=== PATIENT | female | born 1980 | race Caucasian/White ===

== ENCOUNTER 2016-12-28 16:29 | Emergency (ER) | payer OTHER ==
[~2016-12-28] VITALS: Ht 165.1 cm; Wt 102.3 kg
[~2016-12-28 16:29] MED LIST: ATV/1 PO; LEVO175T PO
[2016-12-28 16:35] VITALS: Ht 165.1 cm; Wt 102.3 kg
[2016-12-28] MEDS ORDERED: SODIUM CHLORIDE 0.9% 1000ML 1,000 ML IV STA (17:33)
[2016-12-28] MEDS ORDERED: KETOROLAC TROMETHAMINE 30 MG/ML VIAL IV STA (17:33)
[2016-12-28] MEDS ORDERED: ONDANSETRON INJ 2 MG/ML 2 ML VIAL IV STA (17:33)
--- NOTE | 2016-12-28 17:57 | EMERGENCY ROOM VISIT NOTE ---
History Report prepared by Abrahamibcameron: Kallie Eubanks Under the Supervision of: Olga BatistaO. First contact with patient: 17:23 Chief Complaint: FLANK PAIN Stated Complaint: LOWER BACK/KIDNEY PAIN History of Present Illness The patient is a 36 year old female who presents to the Emergency Room with complaints of constant lower back pain that started two days ago. She notes that the pain worsens when she is laying on her back. She denies numbness in her legs. The patient notes she is prone kidney infections. The patient denies blood in urine. She also states she had her gallbladder removed. The patient works at [employer]. She denies any urinary symptoms and notes that she normally does not get any urinary symptoms. No fevers. No chest pain shortness of breath or vomiting. No history kidney stones. Source of History: patient Onset: two days ago Position: back (lower) Timing: constant Modifying Factors (Worsening): other (laying) Associated Symptoms: No numbness Note: Pt denies headache, change in vision, fevers, chest pain, shortness of breath, nausea, vomiting, diarrhea, pain with urination, and melena. The patient denies blood in urine. Review of Systems See HPI for pertinent positives & negatives. A total of 10 systems reviewed and were otherwise negative. Past Medical & Surgical Medical Problems: (1) Abdominal pain (2) Abdominal pain (3) Abdominal pain (4) Abdominal pain (5) Acute pyelonephritis (6) Back pain (7) C. difficile colitis (8) C. difficile colitis (9) C. difficile colitis (10) C. difficile colitis (11) Constipation (12) Dental caries (13) Diarrhea (14) Dysplasia of cervix (15) Gastritis (16) Gastritis (17) Hypokalemia (18) Hypothyroidism (19) Lower abdominal pain (20) Migraine (21) Nausea, vomiting, and diarrhea (22) Ovarian cyst, right (23) Ovarian cyst, right (24) Pain in pelvis (25) Pain, dental (26) Pyelonephritis (27) Rib pain on right side (28) Toe fracture, left (29) Urinary tract infection (30) Vomiting Surgical Problems: (1) Cholecystectomy (2) Excision of skin tag (3) Laparoscopy (4) Vaginal hysterectomy Family History Hypertension Irritable bowel syndrome Social History Smoking Status: Current Every Day Smoker Alcohol Use: occasionally Drug Use: none Marital Status: single Housing Status: unknown Occupation Status: employed Current/Historical Medications Scheduled Sulfa/Trimethoprim (Bactrim Ds 800MG/160MG), 1 TAB PO BID Allergies Coded Allergies: Morphine (Verified Allergy, Severe, "CHEST GETS TIGHT AND CAN'T BREATH", ) Physical Exam Vital Signs Date Time Temp Pulse Resp B/P (MAP) Pulse Ox O2 Delivery O2 Flow Rate FiO2 12/28/16 20:11 37.0 81 17 142/99 97 12/28/16 19:47 81 17 142/99 97 Room Air 12/28/16 16:35 37.0 87 17 157/103 97 Room Air Physical Exam GENERAL: alert, well appearing, well nourished, no distress, non-toxic, sitting up in bed. EYE EXAM: normal conjunctiva OROPHARYNX: no exudate, no erythema, lips, buccal mucosa, and tongue normal and mucous membranes are moist NECK: supple, no nuchal rigidity, no adenopathy, non-tender LUNGS: Clear to auscultation. Normal chest wall mechanics HEART: no murmurs, S1 normal and S2 normal ABDOMEN: abdomen soft, non-tender, normo-active bowel sounds, no masses, no rebound or guarding. BACK: Back is symmetrical on inspection and there is no deformity, no midline tenderness, no CVA tenderness. Acute reproducible tenderness in right lower lumbar para spinal region tracking into gluteus. SKIN: no rashes and no bruising UPPER EXTREMITIES: upper extremities are grossly normal. LOWER EXTREMITIES: No pitting edema.Flexion and extension in hip, knee, ankle, and EHL, 5/5 bilaterally NEURO EXAM: Normal sensorium. Medical Decision & Procedures ER Provider Diagnostic Interpretation: Radiology results as stated below per my review and the radiologist's interpretation: CT SCAN OF THE ABDOMEN AND PELVIS WITHOUT IV CONTRAST FINDINGS: Lung bases: The heart is normal in size and without pericardial effusion. The lungs and pleural spaces are clear noting minimal dependent atelectasis. A tiny hiatal hernia is identified. Liver: The unenhanced liver is enlarged, measuring 21.3 cm in length. The liver is otherwise normal in contour and attenuation. There is minimal central intrahepatic biliary ductal dilatation as well as pneumobilia. Gallbladder: Surgically absent noting clips in the gallbladder fossa. Spleen: Normal in size and attenuation. Pancreas: Unremarkable. Adrenal glands: Unremarkable. Kidneys: The unenhanced kidneys are normal in size and without hydronephrosis. No renal calculi are identified. There is no evidence of contour deforming mass lesion. Abdominal vasculature: The abdominal aorta is normal in course and caliber. Bowel: The small bowel and colon are normal in course and caliber. The appendix is well-visualized and normal. Peritoneum: No intraperitoneal free air or abdominal ascites is seen. There is a fat-containing umbilical hernia. Lymphadenopathy: None. Pelvic viscera: The bladder is normal as visualized. The uterus is surgically absent. There are bilateral ovarian follicles. Skeletal structures: No destructive bony lesions are seen. IMPRESSION: 1. There are no acute infectious or inflammatory findings in the abdomen or pelvis. 2. Hepatomegaly. Electronically signed by: Son Sharma M.D. Laboratory Results 12/28/16 17:50 Red Blood Count 4.19, Mean Corpuscular Volume 100.0, Mean Corpuscular Hemoglobin 34.4, Mean Corpuscular Hemoglobin Concent 34.4, Mean Platelet Volume 10.3, Neutrophils (%) (Auto) 63.7, Lymphocytes (%) (Auto) 26.8, Monocytes (%) ( Auto) 6.3, Eosinophils (%) (Auto) 2.5, Basophils (%) (Auto) 0.4, Neutrophils # ( Auto) 4.66, Lymphocytes # (Auto) 1.96, Monocytes # (Auto) 0.46, Eosinophils # ( Auto) 0.18, Basophils # (Auto) 0.03 12/28/16 17:50 Test 12/28/16 17:50 12/28/16 18:20 White Blood Count 7.31 K/uL (4.8-10.8) Red Blood Count 4.19 M/uL (4.2-5.4) Hemoglobin 14.4 g/dL (12.0-16.0) Hematocrit 41.9 % (37-47) Mean Corpuscular Volume 100.0 fL (80-100) Mean Corpuscular Hemoglobin 34.4 pg (25-34) Mean Corpuscular Hemoglobin Concent 34.4 g/dl (32-36) Platelet Count 338 K/uL (130-400) Mean Platelet Volume 10.3 fL (7.4-10.4) Neutrophils (%) (Auto) 63.7 % Lymphocytes (%) (Auto) 26.8 % Monocytes (%) (Auto) 6.3 % Eosinophils (%) (Auto) 2.5 % Basophils (%) (Auto) 0.4 % Neutrophils # (Auto) 4.66 K/uL (1.4-6.5) Lymphocytes # (Auto) 1.96 K/uL (1.2-3.4) Monocytes # (Auto) 0.46 K/uL (0.11-0.59) Eosinophils # (Auto) 0.18 K/uL (0-0.5) Basophils # (Auto) 0.03 K/uL (0-0.2) RDW Standard Deviation 47.9 fL (36.4-46.3) RDW Coefficient of Variation 13.2 % (11.5-14.5) Immature Granulocyte % (Auto) 0.3 % Immature Granulocyte # (Auto) 0.02 K/uL (0.00-0.02) Anion Gap 8.0 mmol/L (3-11) Est Creatinine Clear Calc Drug Dose 103.5 ml/min Estimated GFR () 96.0 Estimated GFR (Non- 82.8 BUN/Creatinine Ratio 10.9 (10-20) Calcium Level 8.8 mg/dl (8.5-10.1) Total Bilirubin 0.1 mg/dl (0.2-1) Direct Bilirubin < 0.1 mg/dl (0-0.2) Aspartate Amino Transf (AST/SGOT) 18 U/L (15-37) Alanine Aminotransferase (ALT/SGPT) 26 U/L (12-78) Alkaline Phosphatase 81 U/L (45-117) Total Protein 7.9 gm/dl (6.4-8.2) Albumin 4.0 gm/dl (3.4-5.0) Lipase 144 U/L (73-393) Urine Color YELLOW Urine Appearance CLEAR (CLEAR) Urine pH 6.5 (4.5-7.5) Urine Specific Hamel 1.014 (1.000-1.030) Urine Protein NEG (NEG) Urine Glucose (UA) NEG (NEG) Urine Ketones NEG (NEG) Urine Occult Blood NEG (NEG) Urine Nitrite NEG (NEG) Urine Bilirubin NEG (NEG) Urine Urobilinogen NEG (NEG) Urine Leukocyte Esterase MODERATE (NEG) Urine WBC (Auto) >30 /hpf (0-5) Urine RBC (Auto) 0-4 /hpf (0-4) Urine Hyaline Casts (Auto) 1-5 /lpf (0-5) Urine Epithelial Cells (Auto) 5-10 /lpf (0-5) Urine Bacteria (Auto) 3+ (NEG) Urine Test NEG (NEG) Laboratory results per my review. Medications Administered Medications (Trade) Dose Ordered Sig/Elvis Route Start Time Stop Time Status Last Admin Dose Admin Sodium Chloride 1,000 ml @ 999 mls/hr Q1H1M STAT IV 12/28/16 17:33 12/28/16 18:33 DC 12/28/16 18:27 999 MLS/HR Ketorolac Tromethamine (Toradol Inj) 30 mg NOW STAT IV 12/28/16 17:33 12/28/16 17:35 DC 12/28/16 18:28 30 MG Ondansetron HCl (Zofran Inj) 4 mg NOW STAT IV 12/28/16 17:33 12/28/16 17:35 DC 12/28/16 18:27 4 MG Ceftriaxone Sodium (Rocephin Inj) 1 gm NOW STAT IV 12/28/16 19:22 12/28/16 19:23 DC 12/28/16 19:39 1 GM ED Course ED COURSE: Vital signs were reviewed and showed hypertensive The patients medical record was reviewed The above diagnostic studies were performed and reviewed. ED treatments and interventions as stated above. 1727: The patient was evaluated in room A11B. A complete history and physical examination was performed. 1733: Zofran Inj 4 mg IV, Toradol Inj 30 mg IV, Sodium Chloride 1000 ml @ 999 mls/hr IV. 1806: I updated the patient. She is feeling better. 1921: Rocephin Inj 1 gm IV 8: Upon reevaluation, the patient is resting.I discussed my findings with the patient and she understands and agrees with the treatment plan. Based on the patients age, coexisting illnesses, exam and lab findings the decision to treat as an outpatient was made. The patient remained stable while under my care. The patient appeared well at the time of discharge. Medical Decision Differential diagnoses includes but is not limited to lumbar radiculopathy, muscle strain, facture, cauda equina, mass, and disc herniation. Patient is a 36-year-old female who presents the ER for right lower back pain radiating into her gluteus on palpation. Pain is worsened with laying on. Has been present for the past 2 days. No urinary symptoms. Vitals were unremarkable. CBC along with BMP, LFTs, bilirubin and lipase are normal. UA suggest a UTI. was negative. Patient was given IV Rocephin. Her back pain does appear to be clearly musculoskeletal. I did CT her and there is no evidence of renal stone. Based on the findings she was discharged with a UTI and lower back pain secondary to muscle skeletal pain. Discussed with Pt concerning signs and symptoms to watch out for. Pt was instructed to follow up with their PCP and discussed with the patient their option to return to the ED at anytime for persistent or worsening symptoms. The appropriate anticipatory guidance and out-patient management, including indications for return to the emergency department, were explained at length to the patient and understood. Medication Reconcilliation Current Medication List: was personally reviewed by me Blood Pressure Screening Patient's blood pressure: Elevated blood pressure Blood pressure disposition: Elevated BP felt to be situational Impression Primary Impression: UTI (urinary tract infection) Additional Impression: Musculoskeletal pain Scribe Attestation The scribe's documentation has been prepared under my direction and personally reviewed by me in its entirety. I confirm that the note above accurately reflects all work, treatment, procedures, and medical decision making performed by me. Departure Information Dispostion Home / Self-Care Prescriptions Sulfa/Trimethoprim (Bactrim Ds 800MG/160MG) Tab 1 TAB PO BID, #20 TAB Prov: Ben Arce DO 12/28/16 Referrals Nereida Sanchez DO (PCP) Forms HOME CARE DOCUMENTATION FORM, IMPORTANT VISIT INFORMATION Patient Instructions Back Pain - [facility], ED UTI Cystitis Female, My [facility] Additional Instructions Please follow up with your primary care doctor or if you are a student, [facility] with in the next 24 hours. Any worsening of your symptoms, please return to the ED immediately. This includes any fevers greater than 100.4, worsening pain, chest pain, shortness breath, persistent nausea, vomiting, unable to eat or drink, or any other concerning signs or symptoms from your standpoint. Please take antibiotic as prescribed. These take Motrin or Tylenol as needed for your back pain. Problem Qualifiers Primary Impression: UTI (urinary tract infection) Urinary tract infection type: acute cystitis Hematuria presence: with hematuria Qualified Codes: N30.01 - Acute cystitis with hematuria
[2016-12-28 17:58] LABS: BASO % 0.4 %; BASO ABS # 0.03 K/uL (0-0.2); COMPLETE YES; EOS % 2.5 %; HEMATOCRIT 41.9 % (37-47); IG% 0.3 %; LYMPH % 26.8 %; LYMPH ABS # 1.96 K/uL (1.2-3.4); MEAN CORPUSCULAR HEMOGLOBIN 34.4 pg (25-34); MEAN CORPUSCULAR HGB CONC 34.4 g/dl (32-36); MEAN PLATELET VOLUME 10.3 fL (7.4-10.4); MONO % 6.3 %; NEUT % 63.7 %; PLATELET COUNT 338 K/uL (130-400); RED BLOOD COUNT 4.19 M/uL (4.2-5.4); WHITE BLOOD COUNT 7.31 K/uL (4.8-10.8)
[2016-12-28 18:15] LABS: ALT/SGPT 26 U/L (12-78); BLOOD UREA NITROGEN 10 mg/dl (7-18); BUN/CREATININE RATIO 10.9 (10-20); CALCIUM 8.8 mg/dl (8.5-10.1); CARBON DIOXIDE 28 mmol/L (21-32); CHLORIDE 106 mmol/L (98-107); GLUCOSE 95 mg/dl (70-99); POTASSIUM 3.6 mmol/L (3.5-5.1); SODIUM 142 mmol/L (136-145)
[2016-12-28 18:18] LABS: ALKALINE PHOSPHATASE 81 U/L (45-117); AST/SGOT 18 U/L (15-37)
[2016-12-28 18:48] LABS: URINE APPEARANCE CLEAR (CLEAR); URINE BILIRUBIN NEG (NEG); URINE COLOR YELLOW; URINE NITRITE NEG (NEG); URINE PH 6.5 (4.5-7.5); URINE SPECIFIC GRAVITY 1.014 (1.000-1.030); UROBILINOGEN NEG (NEG); ZZUR CULT IF INDIC CLEAN CATCH YES
[2016-12-28 18:50] LABS: MANUAL MICROSCOPIC REQUIRED? NO; REVIEW REQ? NO
--- NOTE | 2016-12-28 19:07 | DIAGNOSTIC IMAGING REPORT ---
CT SCAN OF THE ABDOMEN AND PELVIS WITHOUT IV CONTRAST CLINICAL HISTORY: Right flank pain. COMPARISON STUDY: Multiple prior abdominal CT scans, most recently dated 08/01/2015. TECHNIQUE: CT scan of the abdomen and pelvis is performed from the lung bases to the proximal femora. Images reviewed in the axial, sagittal, and coronal planes. IV contrast was not administered for this examination as per the referring clinician. Note that the examination was performed in suboptimal fashion without oral and IV contrast. A dose lowering technique was utilized adhering to the principles of ALARA. IMPRESSION: CT DOSE: 1020.14 mGy.cm FINDINGS: Lung bases: The heart is normal in size and without pericardial effusion. The lungs and pleural spaces are clear noting minimal dependent atelectasis. A tiny hiatal hernia is identified. Liver: The unenhanced liver is enlarged, measuring 21.3 cm in length. The liver is otherwise normal in contour and attenuation. There is minimal central intrahepatic biliary ductal dilatation as well as pneumobilia. Gallbladder: Surgically absent noting clips in the gallbladder fossa. Spleen: Normal in size and attenuation. Pancreas: Unremarkable. Adrenal glands: Unremarkable. Kidneys: The unenhanced kidneys are normal in size and without hydronephrosis. No renal calculi are identified. There is no evidence of contour deforming mass lesion. Abdominal vasculature: The abdominal aorta is normal in course and caliber. Bowel: The small bowel and colon are normal in course and caliber. The appendix is well-visualized and normal. Peritoneum: No intraperitoneal free air or abdominal ascites is seen. There is a fat-containing umbilical hernia. Lymphadenopathy: None. Pelvic viscera: The bladder is normal as visualized. The uterus is surgically absent. There are bilateral ovarian follicles. Skeletal structures: No destructive bony lesions are seen. IMPRESSION: 1. There are no acute infectious or inflammatory findings in the abdomen or pelvis. 2. Hepatomegaly. Electronically signed by: Son Sharma M.D. 12/28/2016 7:06 PM Dictated Date/Time: 12/28/2016 6:59 PM
[2016-12-28] MEDS ORDERED: CEFTRIAXONE SOD INJ 1 GM ADDVIAL IV STA (19:22)
[2016-12-28 20:11] VITALS: BP 142/99; PULSE 81; TEMP 37; O2SAT 97
[2016-12-28] MEDS ORDERED: SULF800T23 PO (20:11)
--- NOTE | 2016-12-30 12:50 | Pharmacy Progress Note ---
ED Pharmacist Culture FollowUp Date of Service: Dec 30, 2016. Patient was sent home with a prescription for Bactrim, which should cover the E. coli growing from the patient's urine culture.
== END 2016-12-28 20:15 | disposition home or self-care (01) ==
LOC: C.EDB 16:30 → C.EDA 20:15
DX: N30.01 Acute cystitis with hematuria (principal); M79.1 Myalgia; A04.7 Enterocolitis due to Clostridium difficile; E87.6 Hypokalemia; E03.9 Hypothyroidism, unspecified; Z82.49 Family history of ischemic heart disease and other diseases of the circulatory system; F17.200 Nicotine dependence, unspecified, uncomplicated

== ENCOUNTER 2017-01-16 15:11 | Emergency (ER) | payer OTHER ==
[~2017-01-16] VITALS: Ht 165.1 cm; Wt 106.8 kg
[~2017-01-16 15:11] MED LIST changes: -ATV/1 PO; -LEVO175T PO; +SULF800T23 PO
[2017-01-16 15:14] VITALS: TEMP 36.7; Ht 165.1 cm; Wt 106.8 kg
[2017-01-16] MEDS ORDERED: SODIUM CHLORIDE 0.9% 1000ML 1,000 ML IV STA (15:40)
[2017-01-16] MEDS ORDERED: KETOROLAC TROMETHAMINE 30 MG/ML VIAL IV STA (15:40)
[2017-01-16] MEDS ORDERED: PROCHLORPERAZINE INJ 10 MG in SYRINGE 8 ML IV STA (15:40)
[2017-01-16] MEDS ORDERED: DiphenhydrAMINE HCL 50 MG/ML VIAL IV STA (15:40)
[2017-01-16] MEDS ORDERED: DEXAMETHASONE SOD INJ 10 MG/ML VIAL IV ONE (15:45)
--- NOTE | 2017-01-16 15:54 | EMERGENCY ROOM VISIT NOTE ---
History Report prepared by Nidia: Hal Roberts Under the Supervision of: Dr. Son Monzon M.D. First contact with patient: 15:34 Chief Complaint: HEADACHE Stated Complaint: FLOATERS IN EYE, HEADACHE History of Present Illness The patient is a 36 year old female who presents to the Emergency Room with complaints of an intermittent headache beginning three days ago. She currently rates her discomfort a 7/10 in severity. The patient states that three days ago she was driving home from work and saw things in her left eye. She reports that she thought it was dirt form her windshield, so she looked around, but it stayed with her. The patient notes that when she arrived home, she experienced a severe headache. She states that she was severely nauseous, and her discomfort was an 8/10 in severity. The patient reports that she has a history of migraines and has been on medication before. She notes that this morning, she went in to work to help out. The patient states that she was bending and had to drive to work. She reports that after she returned home, she developed another headache. The patient notes that she called her eye doctor and her PCP. She states that she was told to come to the ED. The patient reports that her migraines typically are centered around her eyes, and it hurts to move them. She notes that the sunlight bothers her eyes, but inside lighting does not. The patient states that she has 20/20 vision, and it seems like her eyes are taking longer to adjust than normal. She reports that she tried taking Tylenol. The patient notes it did not help her, but that is typical for her migraines. She denies hitting her head, fevers, urinary symptoms, vomiting, and a history of diabetes mellitus. Source of History: patient Onset: 3 days ago Position: head Symptom Intensity: 7/10 Quality: ache Timing: intermittent Modifying Factors (Worsening): other (sunlight) Associated Symptoms: + nausea, No fevers, No vomiting, No urinary symptoms Note: Denies: hitting her head Review of Systems See HPI for pertinent positives & negatives. A total of 10 systems reviewed and were otherwise negative. Past Medical & Surgical Medical Problems: (1) Abdominal pain (2) Abdominal pain (3) Abdominal pain (4) Abdominal pain (5) Acute pyelonephritis (6) Back pain (7) C. difficile colitis (8) C. difficile colitis (9) C. difficile colitis (10) C. difficile colitis (11) Constipation (12) Dental caries (13) Diarrhea (14) Dysplasia of cervix (15) Gastritis (16) Gastritis (17) Hypokalemia (18) Hypothyroidism (19) Lower abdominal pain (20) Migraine (21) Nausea, vomiting, and diarrhea (22) Ovarian cyst, right (23) Ovarian cyst, right (24) Pain in pelvis (25) Pain, dental (26) Pyelonephritis (27) Rib pain on right side (28) Toe fracture, left (29) Urinary tract infection (30) Vomiting Surgical Problems: (1) Cholecystectomy (2) Excision of skin tag (3) Laparoscopy (4) Vaginal hysterectomy Family History Hypertension Irritable bowel syndrome Social History Smoking Status: Never Smoker Alcohol Use: occasionally Drug Use: none Marital Status: single Housing Status: unknown Occupation Status: employed Current/Historical Medications No Active Prescriptions or Reported Meds Allergies Coded Allergies: Morphine (Verified Allergy, Severe, "CHEST GETS TIGHT AND CAN'T BREATH", ) Physical Exam Vital Signs Date Time Temp Pulse Resp B/P (MAP) Pulse Ox O2 Delivery O2 Flow Rate FiO2 01/16/17 17:52 74 18 115/74 96 01/16/17 16:43 79 18 124/77 97 Room Air 01/16/17 15:14 36.7 96 20 140/90 97 Room Air Physical Exam GENERAL: Patient is in no acute distress. HEENT: No acute trauma, normocephalic atraumatic, mucous membranes moist, no nasal congestion, no scleral icterus. Pupils equal and reactive to light. NECK: No stridor, no adenopathy, no meningismus, trachea is midline. LUNGS: Clear to auscultation bilaterally, no wheeze, no rhonchi, breath sounds equal. HEART: Without murmurs gallops or rubs, regular rate and rhythm. ABDOMEN: Soft, nontender, bowel sounds positive, no hernias, no peritonitis. EXTREMITIES: No cyanosis or edema, full range of motion of all the joints without pain or difficulty, no signs for acute trauma. NEUROLOGIC: Oriented x 3, no acute motor or sensory deficits, no focal weakness. No cerebellar deficits. SKIN: No rash, no jaundice, no diaphoresis Medical Decision & Procedures Medications Administered Medications (Trade) Dose Ordered Sig/Elvis Route Start Time Stop Time Status Last Admin Dose Admin Sodium Chloride 1,000 ml @ 999 mls/hr Q1H1M STAT IV 01/16/17 15:40 01/16/17 16:40 DC 01/16/17 16:41 999 MLS/HR Diphenhydramine HCl (Benadryl Inj) 50 mg NOW STAT IV 01/16/17 15:40 01/16/17 15:44 DC 01/16/17 16:41 50 MG Ketorolac Tromethamine (Toradol Inj) 30 mg NOW STAT IV 01/16/17 15:40 01/16/17 15:44 DC 01/16/17 16:41 30 MG Prochlorperazine Edisylate 10 mg/ Syringe 10 ml @ 5 mls/min NOW STAT IV 01/16/17 15:40 01/16/17 15:44 DC 01/16/17 17:30 5 MLS/MIN Dexamethasone Sodium Phosphate (Decadron Inj) 10 mg NOW ONCE IV 01/16/17 15:45 01/16/17 15:46 DC 01/16/17 16:41 10 MG ED Course 1536: The patient was evaluated in room B07. A complete history and physical exam was performed. 1540: Ordered Prochlorperazine Edisylate 10 mg/Syringe 10 ml @ 5 mls/min IV, Toradol Inj 30mg IV, Benadryl Inj 50mg IV, Sodium Chloride 1000 ml @ 999 mls/hr IV 1545: Ordered Decadron Inj 10mg IV 1738: Reevaluated the patient. The patient states her headache is gone. Her visual acuity was 20/30 in both the right and left eye. The patient's eye pressure was 12.8 in the left and 11 in the right. Discussed results and discharge instructions: she verbalized understanding and agreement. The patient is ready for discharge. Medical Decision The patient is a 36 year old female who presents to the ED with complaints of a headache. Differential diagnoses considered include migraine headache, tension headache, intracranial bleeding, meningitis, head injury. The patient presents with complaints which sounded very migrainous. She has a history of similar headaches. On exam, her visual acuity was 20/30 in both eyes. Pressure testing of the eyes was normal. She had a nonfocal neurologic evaluation. She had no focal neurologic deficits. There was no meningismus, she was not febrile. The patient received IV Compazine, IV Toradol, IV Benadryl and IV Decadron. She was given IV saline. She feels improved. She is being discharged to follow with her doctor and possibly her eye doctor. Her headache does sound migrainous. Impression Primary Impression: Headache Scribe Attestation The scribe's documentation has been prepared under my direction and personally reviewed by me in its entirety. I confirm that the note above accurately reflects all work, treatment, procedures, and medical decision making performed by me. Departure Information Dispostion Home / Self-Care Prescriptions No Active Prescriptions or Reported Meds Referrals No Doctor, Assigned (PCP) Forms HOME CARE DOCUMENTATION FORM, IMPORTANT VISIT INFORMATION Patient Instructions My [facility] [address] Additional Instructions fluids rest return if worsening or have fever or vomiting eye testing was ok today see eye doctor in follow up
[2017-01-16 17:52] VITALS: BP 115/74; PULSE 74; O2SAT 96
== END 2017-01-16 17:53 | disposition home or self-care (01) ==
LOC: C.EDB 15:13
DX: R51 Headache (principal); E03.9 Hypothyroidism, unspecified; E87.6 Hypokalemia; Z82.49 Family history of ischemic heart disease and other diseases of the circulatory system

== ENCOUNTER 2017-01-20 16:58 | Emergency (ER) | payer OTHER ==
[~2017-01-20] VITALS: Ht 165.1 cm; Wt 107.4 kg
[2017-01-20 17:04] VITALS: TEMP 37.2; Ht 165.1 cm; Wt 107.4 kg
[2017-01-20] MEDS ORDERED: SODIUM CHLORIDE 0.9% 1000ML 1,000 ML IV ONE ×2 (17:45)
[2017-01-20] MEDS ORDERED: MoRPHine SULFATE 4 MG/ML 1 ML CARP\\VIAL IV STA (17:45)
--- NOTE | 2017-01-20 17:52 | EMERGENCY ROOM VISIT NOTE ---
History First contact with patient: 17:23 Chief Complaint: DIARRHEA Stated Complaint: DIARRHEA,FEVER Nursing Triage Summary: diarrhea since thursday. hx of c diff History of Present Illness The patient is a 36 year old female who presents to the Emergency Room with complaints of diarrhea for the last 4 days. She has had approximately 10-12 bowel movements per day for the last 4 days. She denies any dark stools or blood in her stool. She has been also running a fever. She says her temperature typically runs low at the 97F range. Today she took it before she left the house. It was 99.4F. She denies any vomiting. She does complain of abdominal pain which is constant in the upper region of her abdomen. The patient reports a history of having C. difficile 3 times in the past. Her last diagnosis was 8 months ago. She completed a course of antibiotics at that time. Of note, the patient was seen in the emergency department approximately 1 month ago. She was treated for UTI with Bactrim. Review of Systems 10 system review performed and negative unless noted in HPI or below Past Medical/Surgical History Medical Problems: (1) Abdominal pain (2) Abdominal pain (3) Abdominal pain (4) Abdominal pain (5) Acute pyelonephritis (6) Back pain (7) C. difficile colitis (8) C. difficile colitis (9) C. difficile colitis (10) C. difficile colitis (11) Constipation (12) Dental caries (13) Diarrhea (14) Dysplasia of cervix (15) Gastritis (16) Gastritis (17) Hypokalemia (18) Hypothyroidism (19) Lower abdominal pain (20) Migraine (21) Nausea, vomiting, and diarrhea (22) Ovarian cyst, right (23) Ovarian cyst, right (24) Pain in pelvis (25) Pain, dental (26) Pyelonephritis (27) Rib pain on right side (28) Toe fracture, left (29) Urinary tract infection (30) Vomiting Surgical Problems: (1) Cholecystectomy (2) Excision of skin tag (3) Laparoscopy (4) Vaginal hysterectomy Family History Hypertension Irritable bowel syndrome Social History Smoking Status: Current Every Day Smoker Alcohol Use: none Current/Historical Medications No Active Prescriptions or Reported Meds Physical Exam Vital Signs Date Time Temp Pulse Resp B/P (MAP) Pulse Ox O2 Delivery O2 Flow Rate FiO2 01/20/17 20:54 80 13 142/93 95 Room Air 01/20/17 18:55 71 15 153/95 98 Room Air 01/20/17 17:34 80 01/20/17 17:04 37.2 76 18 157/100 96 Room Air Physical Exam VITALS: Vitals are noted on the nurse's note and reviewed by myself. Vital signs stable. GENERAL: 36-year-old female, in no acute distress, nondiaphoretic, well- developed well-nourished. SKIN: The skin was without rashes, erythema, edema, or bruising. HEAD: Normocephalic atraumatic. MOUTH: Mucous membranes slightly dry NECK: Supple without nuchal rigidity. No JVD. HEART: Regular rate and rhythm without murmurs gallops or rubs. LUNGS: Clear to auscultation bilaterally without wheezes, rales or rhonchi. No accessory muscle use. ABDOMEN: Positive bowel sounds x 4.Soft, mild tenderness to palpation in the epigastric region, without organomegaly. No guarding or rebound tenderness. MUSCULOSKELETAL: No muscle atrophy, erythema, or edema noted. Strength 5/5 throughout. NEURO: Patient was alert and oriented to person place and time. Normal sensation to touch. No focal neurological deficits. Medical Decision & Procedures ER Provider Diagnostic Interpretation: PA CHEST RADIOGRAPH AND UPRIGHT AND SUPINE AP RADIOGRAPHS OF THE ABDOMEN CLINICAL HISTORY: Epigastric abdominal pain. COMPARISON STUDY: Chest radiograph and abdominal series December 19, [address] of the abdomen and pelvis December 28, 2016. FINDINGS: Lung volumes are at the lower limits of normal. No pneumothorax or pleural effusion is present. Pulmonary vascularity is normal. Cardiomediastinal silhouette is normal. The appearance of the chest is unchanged. There is no free air. Cholecystectomy clips are noted. Bowel gas pattern is normal. IMPRESSION: 1. No free air or evidence of bowel obstruction. 2. No acute cardiopulmonary findings. Electronically signed by: Reyes Tejeda M.D. 01/20/2017 6:55 PM Dictated Date/Time: 01/20/2017 6:53 PM Laboratory Results 01/20/17 17:30 Red Blood Count 3.99, Mean Corpuscular Volume 100.0, Mean Corpuscular Hemoglobin 34.1, Mean Corpuscular Hemoglobin Concent 34.1, Mean Platelet Volume 11.0, Neutrophils (%) (Auto) 60.9, Lymphocytes (%) (Auto) 31.2, Monocytes (%) ( Auto) 5.4, Eosinophils (%) (Auto) 2.0, Basophils (%) (Auto) 0.3, Neutrophils # ( Auto) 5.72, Lymphocytes # (Auto) 2.94, Monocytes # (Auto) 0.51, Eosinophils # ( Auto) 0.19, Basophils # (Auto) 0.03 01/20/17 17:30 Test 01/20/17 17:30 White Blood Count 9.41 K/uL (4.8-10.8) Red Blood Count 3.99 M/uL (4.2-5.4) Hemoglobin 13.6 g/dL (12.0-16.0) Hematocrit 39.9 % (37-47) Mean Corpuscular Volume 100.0 fL (80-100) Mean Corpuscular Hemoglobin 34.1 pg (25-34) Mean Corpuscular Hemoglobin Concent 34.1 g/dl (32-36) Platelet Count 370 K/uL (130-400) Mean Platelet Volume 11.0 fL (7.4-10.4) Neutrophils (%) (Auto) 60.9 % Lymphocytes (%) (Auto) 31.2 % Monocytes (%) (Auto) 5.4 % Eosinophils (%) (Auto) 2.0 % Basophils (%) (Auto) 0.3 % Neutrophils # (Auto) 5.72 K/uL (1.4-6.5) Lymphocytes # (Auto) 2.94 K/uL (1.2-3.4) Monocytes # (Auto) 0.51 K/uL (0.11-0.59) Eosinophils # (Auto) 0.19 K/uL (0-0.5) Basophils # (Auto) 0.03 K/uL (0-0.2) RDW Standard Deviation 49.9 fL (36.4-46.3) RDW Coefficient of Variation 13.6 % (11.5-14.5) Immature Granulocyte % (Auto) 0.2 % Immature Granulocyte # (Auto) 0.02 K/uL (0.00-0.02) Urine Test NEG (NEG) Anion Gap 7.0 mmol/L (3-11) Est Creatinine Clear Calc Drug Dose 79.7 ml/min Estimated GFR () 67.8 Estimated GFR (Non- 58.5 BUN/Creatinine Ratio 10.0 (10-20) Calcium Level 8.8 mg/dl (8.5-10.1) Magnesium Level 2.0 mg/dl (1.8-2.4) Total Bilirubin 0.2 mg/dl (0.2-1) Aspartate Amino Transf (AST/SGOT) 38 U/L (15-37) Alanine Aminotransferase (ALT/SGPT) 55 U/L (12-78) Alkaline Phosphatase 76 U/L (45-117) Total Protein 7.4 gm/dl (6.4-8.2) Albumin 3.7 gm/dl (3.4-5.0) Globulin 3.7 gm/dl (2.5-4.0) Albumin/Globulin Ratio 1.0 (0.9-2) Lipase 157 U/L (73-393) Medications Administered Medications (Trade) Dose Ordered Sig/Elvis Route Start Time Stop Time Status Last Admin Dose Admin Sodium Chloride 1,000 ml @ 999 mls/hr Q1H1M ONCE IV 01/20/17 17:45 01/20/17 18:45 DC 01/20/17 18:25 999 MLS/HR Sodium Chloride 1,000 ml @ 999 mls/hr Q1H1M ONCE IV 01/20/17 17:45 01/20/17 18:45 DC 01/20/17 17:45 999 MLS/HR Hydromorphone HCl (Dilaudid Inj) 1 mg ONE ONCE IV 01/20/17 18:30 01/20/17 18:31 DC 01/20/17 18:54 1 MG Potassium Chloride (Klor-Con M10) 40 meq NOW STAT PO 01/20/17 19:44 01/20/17 19:45 DC 01/20/17 20:05 40 MEQ Hydromorphone HCl (Dilaudid Inj) 1 mg ONE ONCE IM 01/20/17 20:15 01/20/17 20:16 DC 01/20/17 20:15 1 MG Dicyclomine HCl (Dicyclomine HCl 10MG Home Pack) 1 ea UD ONCE PO 01/20/17 21:00 01/20/17 21:01 DC 01/20/17 21:00 1 EA ED Course Patient was seen and examined Vital signs including blood pressure were reviewed medications list was verified with patient Labs were obtained, and a saline lock was established Imaging was performed and reviewed The patient was given Dilaudid 1 mg IV for pain. She was also hydrated with 2 L of normal saline Upon reevaluation, the patient was still complaining of pain. She was given 1 additional dose of Dilaudid 1 mg IV. We discussed the results of her workup. Unfortunately, the patient was not able to provide a stool sample. The patient was given a home pack of Bentyl I reviewed discharge instructions the patient. They voiced understanding and had no further questions. Medical Decision Differential diagnosis: Recurrent C. difficile colitis, bowel obstruction, pancreatitis, appendicitis, This patient is a 36-year-old female that presents to the emergency department with complaints of abdominal pain and diffuse diarrhea for the last several days. She also has had a fever. She has a history of C. difficile. Upon exam , the patient was mildly tender without any signs of peritonitis. Her imaging was negative for perforation. Normal gas pattern was noted. The patient was not able to have a bowel movement here. She is afebrile with no leukocytosis. Her C. difficile and stool cultures were ordered. The patient was provided with sample cups, and instructed to bring a stool sample to the hospital as soon as possible for testing. No antibiotics were started. She was comfortable with this plan, and discharged in good condition. This chart was completed in part utilizing Siemens Speech Voice Recognition software. Attempts were made to minimize the grammatical errors, random word insertions, pronoun errors and incomplete sentences. Any formal questions or concerns about the content, text or information contained within the body of this dictation should be directly addressed to the provider for clarification. Medication Reconcilliation Current Medication List: was personally reviewed by me Blood Pressure Screening Blood pressure disposition: Elevated BP felt to be situational Impression Primary Impression: Diarrhea Departure Information Dispostion Home / Self-Care Condition GOOD Prescriptions No Active Prescriptions or Reported Meds Referrals No Doctor, Assigned (PCP) Patient Instructions My [facility] Additional Instructions You were evaluated in the emergency department today for diarrhea and abdominal pain. Please provide a stool sample as soon as possible. Take it to the front of the hospital. They will be able to direct to to the lab. Try to stay well-hydrated. Increase your fluid intake with Gatorade and other sports drinks over the next 48 hours. Ibuprofen 600 mg and/or Tylenol 1000 mg every 8 hours for pain or fever You may also alternate these medications for more effective pain relief: Ibuprofen --4 HRS--> Tylenol --4 HRS--> ibuprofen --4 HRS--> Tylenol .... You may also take Bentyl every 8 hours as needed for abdominal cramping Please follow-up with your GI doctor as soon as possible Return to the emergency department if you have any of the following symptoms: -Fever of 102F or greater -Persistent vomiting - Persistent diarrhea -Lethargy -Chest pain -Shortness of breath -Worsening pain
[2017-01-20 18:13] LABS: BASO % 0.3 %; BASO ABS # 0.03 K/uL (0-0.2); COMPLETE YES; HEMATOCRIT 39.9 % (37-47); IG% 0.2 %; LYMPH % 31.2 %; LYMPH ABS # 2.94 K/uL (1.2-3.4); MEAN CORPUSCULAR HEMOGLOBIN 34.1 pg (25-34); MEAN CORPUSCULAR HGB CONC 34.1 g/dl (32-36); MONO % 5.4 %; NEUT % 60.9 %; PLATELET COUNT 370 K/uL (130-400); RED BLOOD COUNT 3.99 M/uL (4.2-5.4); WHITE BLOOD COUNT 9.41 K/uL (4.8-10.8)
[2017-01-20 18:22] LABS: CALCIUM 8.8 mg/dl (8.5-10.1); CREATININE 1.2 mg/dl (0.60-1.20); POTASSIUM 3.3 mmol/L (3.5-5.1)
[2017-01-20] MEDS ORDERED: HYDROmorphone INJ 1 MG/ML SYR IV ONE (18:30)
--- NOTE | 2017-01-20 18:56 | DIAGNOSTIC IMAGING REPORT ---
PA CHEST RADIOGRAPH AND UPRIGHT AND SUPINE AP RADIOGRAPHS OF THE ABDOMEN CLINICAL HISTORY: Epigastric abdominal pain. COMPARISON STUDY: Chest radiograph and abdominal series December 19, [address] of the abdomen and pelvis December 28, 2016. FINDINGS: Lung volumes are at the lower limits of normal. No pneumothorax or pleural effusion is present. Pulmonary vascularity is normal. Cardiomediastinal silhouette is normal. The appearance of the chest is unchanged. There is no free air. Cholecystectomy clips are noted. Bowel gas pattern is normal. IMPRESSION: 1. No free air or evidence of bowel obstruction. 2. No acute cardiopulmonary findings. Electronically signed by: Reyes Tejeda M.D. 01/20/2017 6:55 PM Dictated Date/Time: 01/20/2017 6:53 PM
[2017-01-20] MEDS ORDERED: POTASSIUM CHLORIDE 10 MEQ TABCR PO STA (19:44)
[2017-01-20] MEDS ORDERED: HYDROmorphone INJ 1 MG/ML SYR IM ONE (20:15)
[2017-01-20 20:54] VITALS: BP 142/93; PULSE 80; O2SAT 95
[2017-01-20] MEDS ORDERED: BENTYL HOME PACK 10 MG VIAL PO ONE (21:00)
== END 2017-01-20 21:28 | disposition home or self-care (01) ==
LOC: C.EDB 17:02
DX: R19.7 Diarrhea, unspecified (principal); F17.200 Nicotine dependence, unspecified, uncomplicated; Z87.440 Personal history of urinary (tract) infections; Z86.19 Personal history of other infectious and parasitic diseases; Z90.49 Acquired absence of other specified parts of digestive tract; Z90.710 Acquired absence of both cervix and uterus; Z98.890 Other specified postprocedural states; Z82.49 Family history of ischemic heart disease and other diseases of the circulatory system; Z83.79 Family history of other diseases of the digestive system

== ENCOUNTER → 2017-01-21 | Outpatient (CLI) | payer OTHER ==
[~2017-01-21] MED LIST changes: +ASPI325T39 PO; +HYDR-5688 PO; +LEVO175T3 PO; -SULF800T23 PO
== END | disposition home or self-care (01) ==
LOC: C.LAB 08:49
PROVIDERS: ATTEND Internal Medicine
DX: R10.9 Unspecified abdominal pain (principal)

== ENCOUNTER 2017-02-07 17:52 | Emergency (ER) | payer OTHER ==
[~2017-02-07] VITALS: Ht 165.1 cm; Wt 107.6 kg
[2017-02-07 17:54] VITALS: BP 167/99; PULSE 88; TEMP 36.9; O2SAT 95; Ht 165.1 cm; Wt 107.6 kg
[2017-02-07] MEDS ORDERED: LEVO175T3 PO (18:00)
[2017-02-07] MEDS ORDERED: ASPI325T39 PO (18:01)
[2017-02-07] MEDS ORDERED: HYDR-5688 PO (18:36)
--- NOTE | 2017-02-08 22:45 | EMERGENCY ROOM VISIT NOTE ---
ED Visit Note First contact with patient: 18:06 CHIEF COMPLAINT: I have a filling that fell out of the tooth and now is hurting.. HISTORY OF PRESENT ILLNESS: Ms. Stuart is a 36-year-old white female who ambulates into the complaining of left maxillary dental pain. Patient reports she believes a filling fell out of tooth #14 yesterday and all eating she may of driven a piece of food into that area. She reports since yesterday she has had rapidly increasing pain in the area of tooth 14. She describes her pain as a combination of sharp and throbbing. The pain is radiating superiorly into the maxillary sinus. She rates her discomfort 10/10. Her pain worsens with palpation of the tooth and chilling. She has not identified any alleviating factors related to the pain. She has used ibuprofen without relief of her discomfort. She denies any associated symptoms including fevers, chills, sweats, facial swelling, facial redness, sore throat, difficulty swallowing, voice changes, drooling. REVIEW OF SYSTEMS: As noted above in History of Present Illness. 8 body systems were reviewed with this patient and found to be negative unless noted above otherwise. PMH: Unspecified stomach disorder, unspecified urinary tract symptoms, status post unspecified right knee surgery, cholecystectomy and partial hysterectomy. CURRENT MEDICATION: Patient denies. ALLERGIES TO MEDICATION: Morphine. SOCIAL HISTORY: Patient is currently employed; she lives with her children and feels safe in her home environment; she admits to tobacco and alcohol use. PHYSICAL EXAM: Vital Signs: Date Time Temp Pulse Resp B/P (MAP) Pulse Ox O2 Delivery O2 Flow Rate FiO2 02/07/17 17:54 36.9 88 18 167/99 95 Room Air General: 36 year-old white female in moderate distress due to pain, nontoxic appearing, afebrile and hemodynamically stable. Neurological: Awake, alert and oriented to person, place and time. Answering questions appropriately and following commands. Skin: Warm, dry and pink. No soft tissue lesions or eruptions. HEENT: Atraumatic and normocephalic. No facial swelling or erythema. Oral cavity is moist and pink. Airway is patent. Uvula is midline and no abscesses are seen. Speech is normal. No drooling. Tooth #14 has the entire mesial surface broken off of the tooth with her dental filling exposed. The tooth is tender to palpation but feels stable in its socket. There is no erythema or gingiva erythema or edema. There are no local palpable abscesses. No cervical or submandibular lymphadenopathy. ED COURSE: Patient is assessed as noted above. Patient's medication list was reviewed. Patient is educated about her findings and instructed on her treatment plan; she verbalizes understanding and agreement with this plan. CLINIC IMPRESSION: Dental pain. Broken tooth. DISPOSITION: Patient discharged home in stable condition; prior to departure she was reassessed and subjectively reported she was feeling slightly improved and rated her discomfort 8/10. PLAN: Comfort measures were discussed including a sliding pain scale of ibuprofen, acetaminophen and Vancourt. She was given appropriate narcotic precautions and her name was checked on state database and no red flags were noted. Additionally she was encouraged to cover the affected tooth with dental wax, use a liquid/mechanical soft diet and to avoid tobacco use. Patient was encouraged to followup with personal dentist for definitive care and treatment. Patient was encouraged to return the ED for facial swelling or fevers.
== END 2017-02-07 18:47 | disposition home or self-care (01) ==
LOC: C.EDB 17:53 → C.EDD 18:47
DX: K08.89 Other specified disorders of teeth and supporting structures (principal); S02.5XXA Fracture of tooth (traumatic), initial encounter for closed fracture; X58.XXXA Exposure to other specified factors, initial encounter; Z90.711 Acquired absence of uterus with remaining cervical stump

== ENCOUNTER 2017-04-02 14:48 | Emergency (ER) | payer OTHER ==
[~2017-04-02] VITALS: Ht 165.1 cm; Wt 106.0 kg
[2017-04-02 14:50] VITALS: TEMP 37; Ht 165.1 cm; Wt 106.0 kg
[2017-04-02] MEDS ORDERED: PENI-82 PO (15:10)
[2017-04-02] MEDS ORDERED: PENICILLIN HOME PACK 500MG (4 DOSES)BTL PO ONE (15:15)
[2017-04-02] MEDS ORDERED: PENICILLIN V POTASSIUM 250 MG TAB PO ONE (15:15)
[2017-04-02 15:20] VITALS: BP 150/101; PULSE 93; O2SAT 96
--- NOTE | 2017-04-02 20:56 | EMERGENCY ROOM VISIT NOTE ---
ED Visit Note First contact with patient: 14:56 CHIEF COMPLAINT: Toothache HISTORY OF PRESENT ILLNESS: This 36-year-old female patient presented to the emergency department with a progressive toothache for past 2-3 days. The patient believes it is coming from a left upper molar. The pain is now steady and severe and radiates to the face. The patient does not have a dentist appointment set up. They rate their pain a 9/10 and the ibuprofen and Tylenol they have been taking has not relieved the pain. Denies facial swelling or fever. The patient denies any discharge from the mouth. REVIEW OF SYSTEMS: A 6 system review of systems was completed with positives and pertinent negatives listed in the HPI. ALLERGIES: Morphine MEDICATIONS: See EMR PMH: See EMR SOCIAL HISTORY: Lives locally PHYSICAL EXAM: Vitals are noted on the nurse's note and reviewed by myself. Vital signs stable. GENERAL: White female, in no acute distress, nondiaphoretic, well-developed well -nourished. Mouth: The left upper molar #16 tooth is very carious and the gum is swollen and tender around it, without any discharge or signs of an abscess. The remainder of the pharynx and tonsils are without erythema, edema, or exudate. The airway is patent. There is no facial swelling, cervical or submandibular lymphadenopathy. The patient appears uncomfortable and in pain. The patient has overall fair dental hygiene. EARS: External auditory canals clear, tympanic membranes pearly keenan without erythema or effusion bilaterally. HEART: Regular rate and rhythm without murmur gallop or rub LUNG: Clear to auscultation bilateral ED COURSE: Physical exam and history were performed. Nursing notes and EMR were reviewed. The patient appears to have dental pain over the past few days. She has had problems with this tooth in the past, and this is at least her fourth lifetime visit to the ER for dental pain. The patient does not have evidence of Mika's or drainable abscess. She will be given a course of Pen- Vee K with the first dose provided here. She is to make arrangements to follow with a dentist for definitive care. She was otherwise invited back to the ER with any new, worsening, or concerning symptoms. Problem List Medical Problems: (1) Abdominal pain Status: Resolved (2) Abdominal pain Status: Resolved (3) Abdominal pain Status: Resolved (4) Abdominal pain Status: Resolved (5) Acute pyelonephritis Status: Resolved (6) Back pain Status: Resolved (7) C. difficile colitis Status: Resolved (8) C. difficile colitis Status: Resolved (9) C. difficile colitis Status: Resolved (10) C. difficile colitis Status: Resolved (11) Constipation Status: Resolved (12) Dental caries Status: Resolved (13) Diarrhea Status: Resolved (14) Dysplasia of cervix Status: Resolved (15) Gastritis Status: Resolved (16) Gastritis Status: Resolved (17) Hypokalemia Status: Resolved (18) Hypothyroidism Status: Chronic (19) Lower abdominal pain Status: Resolved (20) Migraine Status: Chronic (21) Nausea, vomiting, and diarrhea Status: Resolved (22) Ovarian cyst, right Status: Chronic (23) Ovarian cyst, right Status: Resolved (24) Pain in pelvis Status: Resolved (25) Pain, dental Status: Resolved (26) Pyelonephritis Status: Resolved (27) Rib pain on right side Status: Resolved (28) Toe fracture, left Status: Resolved (29) Urinary tract infection Status: Resolved (30) Vomiting Status: Resolved Surgical Problems: (1) Cholecystectomy Status: Resolved (2) Excision of skin tag Status: Resolved (3) Laparoscopy Status: Resolved (4) Vaginal hysterectomy Status: Resolved Current/Historical Medications Scheduled Penicillin V Potassium (Veetids), 500 MG PO QID Allergies Coded Allergies: Morphine (Verified Allergy, Severe, "CHEST GETS TIGHT AND CAN'T BREATH", ) Vital Signs Date Time Temp Pulse Resp B/P (MAP) Pulse Ox O2 Delivery O2 Flow Rate FiO2 04/02/17 15:20 93 18 150/101 96 04/02/17 14:50 37.0 93 18 150/101 96 Medications Administered Medications (Trade) Dose Ordered Sig/Elvis Route Start Time Stop Time Status Last Admin Dose Admin Penicillin V Potassium (Pen-Vk 500MG Home Pack) 1 homepack UD ONCE PO 04/02/17 15:15 04/02/17 15:16 DC 04/02/17 15:21 1 HOMEPACK Penicillin V Potassium (Veetids Tab) 500 mg NOW ONCE PO 04/02/17 15:15 04/02/17 15:16 DC 04/02/17 15:20 500 MG Departure Information Impression Primary Impression: Pain, dental Dispostion Home / Self-Care Condition GOOD Prescriptions Penicillin V Potassium (Veetids) 500 Mg Tab 500 MG PO QID, #36 TAB Prov: Meño Benjamin PA-C 04/02/17 Referrals No Doctor, Assigned (PCP) Forms HOME CARE DOCUMENTATION FORM, IMPORTANT VISIT INFORMATION Patient Instructions My [facility] Additional Instructions You were seen and evaluated today on an emergency basis only. This is not a substitute for, or an effort to provide, complete comprehensive medical care. It is not possible to recognize and treat all injuries or illnesses in a single emergency department visit. For this reason it is recommended that you followup with a dentist as soon as possible for definitive care. The emergency department is not able to provide dental services. Take Pen-Vee K 500 mg 4 times daily for the next 10 days. For baseline pain relief you may alternate ibuprofen and acetaminophen every 4 hours for pain control. Take 600 mg ibuprofen (Advil) and then 4 hours later take 1000 mg acetaminophen (Tylenol). Do not take more than 3000 mg acetaminophen in a single day. You are welcome to return to the emergency department anytime with new, worsening, or concerning symptoms.
== END 2017-04-02 15:25 | disposition home or self-care (01) ==
LOC: C.EDB 14:50 → C.EDC 15:25
DX: K08.89 Other specified disorders of teeth and supporting structures (principal); E87.6 Hypokalemia; E03.9 Hypothyroidism, unspecified

== ENCOUNTER → 2017-07-14 | Outpatient (CLI) | payer OTHER ==
[~2017-07-14] MED LIST changes: -ASPI325T39 PO; -HYDR-5688 PO; -LEVO175T3 PO; +OPTIRAY 320 IV PRN; +PENI-82 PO
[2017-07-14 15:38] LABS: BASO % 0.3 %; BASO ABS # 0.03 K/uL (0-0.2); EOS % 1.1 %; EOS ABS # 0.11 K/uL (0-0.5); HEMATOCRIT 43.1 % (37-47); HEMOGLOBIN 14.8 g/dL (12.0-16.0); IG# 0.02 K/uL (0.00-0.02); LYMPH % 24.7 %; LYMPH ABS # 2.39 K/uL (1.2-3.4); MEAN CELL VOLUME 98.4 fL (80-100); MEAN CORPUSCULAR HEMOGLOBIN 33.8 pg (25-34); MEAN CORPUSCULAR HGB CONC 34.3 g/dl (32-36); MEAN PLATELET VOLUME 10.2 fL (7.4-10.4); MONO % 6.2 %; NEUT % 67.5 %; NEUT ABS # 6.54 K/uL (1.4-6.5); PLATELET COUNT 344 K/uL (130-400); RED CELL DISTRIBUTION WIDTH CV 14.3 % (11.5-14.5); RED CELL DISTRIBUTION WIDTH SD 51.1 fL (36.4-46.3); WHITE BLOOD COUNT 9.69 K/uL (4.8-10.8)
[2017-07-14 16:16] LABS: ALT/SGPT 31 U/L (12-78); AST/SGOT 25 U/L (15-37); BLOOD UREA NITROGEN 12 mg/dl (7-18); CALCIUM 8.6 mg/dl (8.5-10.1); CARBON DIOXIDE 26 mmol/L (21-32); CREATININE 0.95 mg/dl (0.60-1.20); GLUCOSE 93 mg/dl (70-99); POTASSIUM 3.3 mmol/L (3.5-5.1); SODIUM 141 mmol/L (136-145)
[2017-07-14 16:48] LABS: ALKALINE PHOSPHATASE 80 U/L (45-117); TOTAL PROTEIN 7.9 gm/dl (6.4-8.2)
--- NOTE | 2017-07-14 17:14 | DIAGNOSTIC IMAGING REPORT ---
ABD/PELVIS IV AND ORAL CONT CLINICAL HISTORY: 36 years-old Female presenting with L INGUINAL HERNIA. TECHNIQUE: Multidetector CT of the abdomen and pelvis was performed after the administration of oral and intravenous contrast. IV contrast: 94 mL of Optiray 320. A dose lowering technique was used consistent with the principles of ALARA (as low as reasonably achievable). COMPARISON: 12/28/2016. CT DOSE (mGy.cm): The estimated cumulative dose is 994.67 mGycm. FINDINGS: [employer] topogram: Cholecystectomy clips. Lung bases: Minimal basilar opacities, likely atelectasis. Normal heart size. No pericardial or pleural effusion. Liver: Normal morphology. Density consistent with hepatic steatosis. Hypodensities in the bilateral lobes of the liver do not demonstrate a density consistent with hepatic cysts and have suggestion of peripheral enhancement, indeterminate but likely benign hemangiomas. Patent hepatic vasculature. Biliary: No intrahepatic or extrahepatic biliary ductal dilatation. Gallbladder surgically absent. Pancreas: Normal. Spleen: Normal. Adrenal glands: Normal. Kidneys and ureters: Normal. No hydronephrosis. Bladder: Incompletely evaluated secondary to underdistention. Pelvic organs: Uterus surgically absent. Normal ovaries. Bowel: Mild wall thickening of the sigmoid colon suggested. No significant pericolonic inflammatory change. The appendix is normal. No bowel obstruction. Peritoneal cavity: No free fluid or intraperitoneal gas. Lymph nodes: No enlarged lymph nodes in the abdomen or pelvis. Vasculature: Aorta and IVC patent and normal in caliber. Abdominal wall: Small fat-containing umbilical hernia. The inguinal canals are normal. Musculoskeletal: Normal. IMPRESSION: 1. Mild wall thickening of the sigmoid colon could suggest mild colitis, likely infectious. Alternatively, this could be factitious and due to underdistention of bowel. 2. No abnormality of the inguinal canals. No evidence of inguinal hernia. Small fat-containing umbilical hernia. Electronically signed by: Tito Moran M.D. 07/14/2017 5:13 PM Dictated Date/Time: 07/14/2017 5:08 PM
== END | disposition home or self-care (01) ==
LOC: C.CTS 14:43
PROVIDERS: ATTEND Nurse Practitioner Family
DX: R10.31 Right lower quadrant pain (principal); E03.9 Hypothyroidism, unspecified

== ENCOUNTER → 2017-07-16 | Outpatient (CLI) | payer OTHER ==
[~2017-07-16] MED LIST changes: -OPTIRAY 320 IV PRN
== END | disposition home or self-care (01) ==
LOC: C.LABSPEC 07:56
PROVIDERS: ATTEND Family Medicine
DX: R19.7 Diarrhea, unspecified (principal)

== ENCOUNTER → 2017-08-24 | Outpatient (CLI) | payer OTHER ==
--- NOTE | 2017-08-24 17:52 | DIAGNOSTIC IMAGING REPORT ---
C-SPINE ROUTINE 4 OR 5 VIEWS HISTORY: 36 years-old Female M25.511 Bilateral shoulder pain acute bilateral shoulder pain without known injury COMPARISON: Cervical spine radiographs 11/14/2015 TECHNIQUE: 5 views of the cervical spine FINDINGS: Cervical thoracic junction is not well seen secondary to overlying soft tissue. There is no acute cervical spine fracture, subluxation or significant degenerative changes. The visualized bony neuroforamina appear patent. No prevertebral soft tissue swelling, or opaque foreign body. Lung apices appear clear. IMPRESSION: No acute cervical spine fracture or subluxation. The above report was generated using voice recognition software. It may contain grammatical, syntax or spelling errors. Electronically signed by: Conor Hoffman M.D. 08/24/2017 5:51 PM Dictated Date/Time: 08/24/2017 5:48 PM
== END | disposition home or self-care (01) ==
LOC: C.RAD 15:47
PROVIDERS: ATTEND Nurse Practitioner Family
DX: M25.511 Pain in right shoulder (principal); M25.512 Pain in left shoulder

== ENCOUNTER 2017-12-06 18:46 | Emergency (ER) | payer OTHER ==
[~2017-12-06] VITALS: Ht 165.1 cm; Wt 102.7 kg
[~2017-12-06 18:46] MED LIST changes: +LEVO175T3 PO; -PENI-82 PO
[2017-12-06 18:51] VITALS: BP 170/86; PULSE 92; TEMP 36.8; O2SAT 97; Ht 165.1 cm; Wt 102.7 kg
[2017-12-06] MEDS ORDERED: NAPR250T77 PO (19:09)
--- NOTE | 2017-12-06 19:11 | EMERGENCY ROOM VISIT NOTE ---
History First contact with patient: 18:55 Chief Complaint: FACIAL PAIN/INJURY Stated Complaint: RIGHT JAW PAIN History of Present Illness The patient is a 37 year old female who presents to the Emergency Room with complaints of pain in the right side of her jaw. She states that she has had the pain for the past 5 days. She states that she feels like she got hit in the jaw. She rates the discomfort an 8/10 and states it is a sharp pain. She states the pain is worse with talking or swallowing. She woke up with the pain on the day the pain began. She feels it is worsening. She reports she also has cracking and popping of the jaw when she opens her mouth. She denies any history of similar symptoms. She denies any ear or dental pain. She has taken [id number] analgesics at home without relief. Review of Systems A complete 6 point review of systems was reviewed with the patient with pertinent positives and negatives as per history of present illness. All else were negative. Past Medical/Surgical History Medical Problems: (1) Abdominal pain (2) Abdominal pain (3) Abdominal pain (4) Abdominal pain (5) Acute pyelonephritis (6) Back pain (7) C. difficile colitis (8) C. difficile colitis (9) C. difficile colitis (10) C. difficile colitis (11) Constipation (12) Dental caries (13) Diarrhea (14) Dysplasia of cervix (15) Gastritis (16) Gastritis (17) Hypokalemia (18) Hypothyroidism (19) Lower abdominal pain (20) Migraine (21) Nausea, vomiting, and diarrhea (22) Ovarian cyst, right (23) Ovarian cyst, right (24) Pain in pelvis (25) Pain, dental (26) Pyelonephritis (27) Rib pain on right side (28) Toe fracture, left (29) Urinary tract infection (30) Vomiting Surgical Problems: (1) Cholecystectomy (2) Excision of skin tag (3) Laparoscopy (4) Vaginal hysterectomy Family History Hypertension Irritable bowel syndrome Social History Smoking Status: Current Every Day Smoker Alcohol Use: none Drug Use: none Marital Status: single Housing Status: unknown Occupation Status: employed Current/Historical Medications Scheduled Levothyroxine Sodium (Levothyroxine Sodium), 175 MCG PO QAM Naproxen (Naprosyn), 250 MG PO BID Physical Exam Vital Signs Date Time Temp Pulse Resp B/P (MAP) Pulse Ox O2 Delivery O2 Flow Rate FiO2 12/06/17 18:51 36.8 92 18 170/86 97 Room Air Physical Exam VITALS: Vitals are noted on the nurse's note and reviewed by myself. Vital signs stable. GENERAL: This is a 37-year-old female, in no acute distress, nondiaphoretic, well-developed well-nourished. SKIN: The skin was without rashes. HEAD: Normocephalic atraumatic. EARS: External auditory canals clear, tympanic membranes pearly keenan without erythema or effusion bilaterally. EYES: Pupils equal round and reactive to light and accommodation. Extraocular movements intact. MOUTH: Mucous membranes moist. Tonsils are not enlarged. Pharynx without erythema or exudate. No evidence of a dental abscess. NECK: Supple without nuchal rigidity. No lymphadenopathy. HEART: Regular rate and rhythm without murmurs gallops or rubs. LUNGS: Clear to auscultation bilaterally without wheezes, rales or rhonchi. MUSCULOSKELETAL: There is tenderness to palpation of the right TMJ. Crepitus is noted with range of motion. NEURO: Patient was alert and oriented to person place and time. Medical Decision & Procedures Medications Administered Medications (Trade) Dose Ordered Sig/Elvis Route Start Time Stop Time Status Last Admin Dose Admin Naproxen (Naproxen 250MG Home Pack) 1 homepack UD ONCE PO 12/06/17 19:15 12/06/17 19:16 DC 12/06/17 19:19 1 HOMEPACK Medical Decision Differential diagnosis includes TMJ disorder, dental pain, otitis media, otitis externa, among others. The patient was evaluated as above. Her presentation is most consistent with TMJ disorder. There is nothing to suggest a dental source of the pain. She does not have an otitis. She will be placed on naproxen and was advised to follow-up with her PCP. She verbalized understanding of my assessment and treatment plan and was discharged home in good condition. Medication Reconcilliation Current Medication List: was personally reviewed by me Blood Pressure Screening Patient's blood pressure: Elevated blood pressure Blood pressure disposition: Elevated BP felt to be situational Impression Primary Impression: Temporomandibular joint pain Departure Information Dispostion Home / Self-Care Condition GOOD Prescriptions Naproxen (NAPROSYN) 250 Mg Tab 250 MG PO BID for 10 Days, #20 TAB Prov: Rolanda Banda PA-C 12/06/17 Referrals Ole Narayan III, CRNP (PCP) Patient Instructions My [facility] Additional Instructions You were treated today for jaw pain which is likely TMJ disorder. Naproxen, 250 mg twice daily as prescribed. You may also take Tylenol, up to 1 gram every 6 hours as needed for pain. Follow up with your primary care provider this week for recheck. Return to the emergency department with any worsening or new/concerning symptoms. Problem Qualifiers Primary Impression: Temporomandibular joint pain Laterality: right Qualified Codes: M26.621 - Arthralgia of right temporomandibular joint
[2017-12-06] MEDS ORDERED: NAPROSYN HOME PACK 250 MG VIAL PO ONE (19:15)
== END 2017-12-06 19:22 | disposition home or self-care (01) ==
LOC: C.EDB 18:47 → C.EDD 19:22
DX: M26.621 Arthralgia of right temporomandibular joint (principal); E03.9 Hypothyroidism, unspecified; F17.200 Nicotine dependence, unspecified, uncomplicated; Z79.899 Other long term (current) drug therapy

== ENCOUNTER 2017-12-27 15:57 | Emergency (ER) | payer OTHER ==
[~2017-12-27] VITALS: Ht 165.1 cm; Wt 99.8 kg
[2017-12-27 16:02] VITALS: TEMP 36.7; Ht 165.1 cm; Wt 99.8 kg
[2017-12-27] MEDS ORDERED: SODIUM CHLORIDE 0.9% 1000ML 1,000 ML IV ONE (16:15)
[2017-12-27] MEDS ORDERED: PROCHLORPERAZINE 5 MG/ML 2 ML VIAL IV STA (16:15)
[2017-12-27] MEDS ORDERED: KETOROLAC TROMETHAMINE 30 MG/ML VIAL IV STA (16:15)
[2017-12-27] MEDS ORDERED: DiphenhydrAMINE HCL 50 MG/ML VIAL IV STA (16:15)
--- NOTE | 2017-12-27 16:22 | EMERGENCY ROOM VISIT NOTE ---
History First contact with patient: 16:06 Chief Complaint: HEADACHE Stated Complaint: MIGRAINES, ABDOMINAL PAIN History of Present Illness The patient is a 37 year old female who presents to the Emergency Room with complaints of a 10/10 headache that started when she woke up this morning. Patient has a history of migraines, and says this feels similar. It feels like a sledgehammer hitting the front of her head. She tried Tylenol with minimal relief. She also had nausea with several episodes of vomiting. She denies any fever, chills or recent illnesses. No significant neck pain. She is sensitive to light. She has also had mild abdominal discomfort, which she relates to the vomiting. Review of Systems 10 system review performed and negative unless noted in HPI or below Past Medical/Surgical History Medical Problems: (1) Abdominal pain (2) Abdominal pain (3) Abdominal pain (4) Abdominal pain (5) Acute pyelonephritis (6) Back pain (7) C. difficile colitis (8) C. difficile colitis (9) C. difficile colitis (10) C. difficile colitis (11) Constipation (12) Dental caries (13) Diarrhea (14) Dysplasia of cervix (15) Gastritis (16) Gastritis (17) Hypokalemia (18) Hypothyroidism (19) Lower abdominal pain (20) Migraine (21) Nausea, vomiting, and diarrhea (22) Ovarian cyst, right (23) Ovarian cyst, right (24) Pain in pelvis (25) Pain, dental (26) Pyelonephritis (27) Rib pain on right side (28) Toe fracture, left (29) Urinary tract infection (30) Vomiting Surgical Problems: (1) Cholecystectomy (2) Excision of skin tag (3) Laparoscopy (4) Vaginal hysterectomy Family History Hypertension Irritable bowel syndrome Social History Smoking Status: Current Every Day Smoker Alcohol Use: none Drug Use: none Marital Status: single Housing Status: unknown Occupation Status: employed Current/Historical Medications Scheduled Levothyroxine Sodium (Levothyroxine Sodium), 175 MCG PO QAM Physical Exam Vital Signs Date Time Temp Pulse Resp B/P (MAP) Pulse Ox O2 Delivery O2 Flow Rate FiO2 12/27/17 18:15 65 18 142/88 95 12/27/17 16:02 36.7 70 20 157/97 95 Room Air Physical Exam VITALS: Vitals are noted on the nurse's note and reviewed by myself. Vital signs stable. GENERAL: 37-year-old female, in mild discomfort,, SKIN: The skin was without rashes, erythema, edema, or bruising. HEAD: Normocephalic atraumatic. EARS: External auditory canals clear, tympanic membranes pearly keeann without erythema or effusion bilaterally. EYES: Pupils equal round and reactive to light and accommodation. Conjunctivae without injection, sclerae without icterus. Extraocular movements intact. MOUTH: Mucous membranes slightly dry. Tonsils are not enlarged. Pharynx without erythema or exudate. Uvula midline. Airway patent. Tongue does not deviate. NECK: Supple without nuchal rigidity. No lymphadenopathy HEART: Regular rate and rhythm without murmurs gallops or rubs. LUNGS: Clear to auscultation bilaterally without wheezes, rales or rhonchi. No accessory muscle use. ABDOMEN: Positive bowel sounds x 4.Soft, nontender, without organomegaly. No guarding or rebound tenderness. MUSCULOSKELETAL: No muscle atrophy, erythema, or edema noted. Strength 5/5 throughout. NEURO: Patient was alert and oriented to person place and time. Cranial nerves grossly intact. Cerebellar function intact. Normal sensation to touch. No focal neurological deficits. Medical Decision & Procedures Laboratory Results 12/27/17 16:54 Red Blood Count 4.33, Mean Corpuscular Volume 95.6, Mean Corpuscular Hemoglobin 31.9, Mean Corpuscular Hemoglobin Concent 33.3, Mean Platelet Volume 10.6, Neutrophils (%) (Auto) 71.4, Lymphocytes (%) (Auto) 22.1, Monocytes (%) (Auto) 4.4, Eosinophils (%) (Auto) 1.5, Basophils (%) (Auto) 0.5, Neutrophils # (Auto) 5.55, Lymphocytes # (Auto) 1.72, Monocytes # (Auto) 0.34, Eosinophils # (Auto) 0.12, Basophils # (Auto) 0.04 12/27/17 16:54 Test 12/27/17 16:54 White Blood Count 7.78 K/uL (4.8-10.8) Red Blood Count 4.33 M/uL (4.2-5.4) Hemoglobin 13.8 g/dL (12.0-16.0) Hematocrit 41.4 % (37-47) Mean Corpuscular Volume 95.6 fL (80-100) Mean Corpuscular Hemoglobin 31.9 pg (25-34) Mean Corpuscular Hemoglobin Concent 33.3 g/dl (32-36) Platelet Count 360 K/uL (130-400) Mean Platelet Volume 10.6 fL (7.4-10.4) Neutrophils (%) (Auto) 71.4 % Lymphocytes (%) (Auto) 22.1 % Monocytes (%) (Auto) 4.4 % Eosinophils (%) (Auto) 1.5 % Basophils (%) (Auto) 0.5 % Neutrophils # (Auto) 5.55 K/uL (1.4-6.5) Lymphocytes # (Auto) 1.72 K/uL (1.2-3.4) Monocytes # (Auto) 0.34 K/uL (0.11-0.59) Eosinophils # (Auto) 0.12 K/uL (0-0.5) Basophils # (Auto) 0.04 K/uL (0-0.2) RDW Standard Deviation 49.6 fL (36.4-46.3) RDW Coefficient of Variation 14.1 % (11.5-14.5) Immature Granulocyte % (Auto) 0.1 % Immature Granulocyte # (Auto) 0.01 K/uL (0.00-0.02) Anion Gap 10.0 mmol/L (3-11) Est Creatinine Clear Calc Drug Dose 113.8 ml/min Estimated GFR () 109.9 Estimated GFR (Non- 94.9 BUN/Creatinine Ratio 14.1 (10-20) Calcium Level 8.4 mg/dl (8.5-10.1) Total Bilirubin 0.2 mg/dl (0.2-1) Aspartate Amino Transf (AST/SGOT) 22 U/L (15-37) Alanine Aminotransferase (ALT/SGPT) 38 U/L (12-78) Alkaline Phosphatase 82 U/L (45-117) Total Protein 7.5 gm/dl (6.4-8.2) Albumin 3.7 gm/dl (3.4-5.0) Globulin 3.8 gm/dl (2.5-4.0) Albumin/Globulin Ratio 1.0 (0.9-2) Thyroid Stimulating Hormone (TSH) 0.455 uIu/ml (0.300-4.500) Medications Administered Medications (Trade) Dose Ordered Sig/Elvis Route Start Time Stop Time Status Last Admin Dose Admin Prochlorperazine Edisylate (Compazine Inj) 10 mg NOW STAT IV 12/27/17 16:15 12/27/17 16:17 DC 12/27/17 17:01 10 MG Diphenhydramine HCl (Benadryl Inj) 25 mg NOW STAT IV 12/27/17 16:15 12/27/17 16:17 DC 12/27/17 17:01 25 MG Ketorolac Tromethamine (Toradol Inj) 30 mg NOW STAT IV 12/27/17 16:15 12/27/17 16:17 DC 12/27/17 17:01 30 MG Sodium Chloride 1,000 ml @ 999 mls/hr Q1H1M ONCE IV 12/27/17 16:15 12/27/17 17:15 DC 12/27/17 17:00 999 MLS/HR ED Course Patient was seen and examined Vital signs including blood pressure were reviewed medications list was verified with patient Labs were obtained, and a saline lock was established The patient was medicated with Benadryl 25 mg, Toradol 30 mg, Compazine 10 mg IV and hydrated with 1 L of normal saline Upon reevaluation, the patient was resting comfortably. We discussed her results. She voiced understanding. She said her headache was much improved. She felt comfortable going home. I reviewed discharge instructions the patient. They voiced understanding and had no further questions. Medical Decision Differential diagnosis: Migraine, cluster, tension headache, intracranial bleed , sinusitis, meningitis among others were entertained This patient is a 37-year-old female that presents to emergency department complaining of a severe migraine headache that started this morning. On exam, she was nontoxic in appearance. She did not have any signs of nuchal rigidity. She was neurologically intact. She has not had any recent illnesses. I did not suspect meningitis. Her labs reveal no leukocytosis. She responded well to a migraine cocktail. I believe she is stable to be discharged home. She will follow-up with her primary care physician this week. She was cautioned on signs for which to return to the emergency department. This chart was completed in part utilizing [employer] Speech Voice Recognition software. Attempts were made to minimize the grammatical errors, random word insertions, pronoun errors and incomplete sentences. Any formal questions or concerns about the content, text or information contained within the body of this dictation should be directly addressed to the provider for clarification. Blood Pressure Screening Patient's blood pressure: Elevated blood pressure Blood pressure disposition: Elevated BP felt to be situational Impression Primary Impression: Migraine Departure Information Dispostion Home / Self-Care Condition GOOD Referrals Ole Narayan III, CRNP (PCP) Patient Instructions My [facility] Additional Instructions You have been evaluated in the emergency department for a severe headache. This is likely due to a migraine. Please try to get plenty of rest and stay well-hydrated tonight. Avoid any triggers such as bright light, loud noises, nicotine or alcohol. Please follow-up with your primary care physician early this week Do not hesitate to return to the emergency department with any new, worsening or concerning symptoms; especially, worsening headache, neck pain or fever It was a pleasure participating in your care this evening Work Instructions Return To Work: 1 day (Please excuse from work on 12/27)
[2017-12-27 17:13] LABS: BASO % 0.5 %; BASO ABS # 0.04 K/uL (0-0.2); EOS % 1.5 %; EOS ABS # 0.12 K/uL (0-0.5); HEMATOCRIT 41.4 % (37-47); HEMOGLOBIN 13.8 g/dL (12.0-16.0); IG# 0.01 K/uL (0.00-0.02); LYMPH % 22.1 %; LYMPH ABS # 1.72 K/uL (1.2-3.4); MEAN CELL VOLUME 95.6 fL (80-100); MEAN CORPUSCULAR HEMOGLOBIN 31.9 pg (25-34); MEAN CORPUSCULAR HGB CONC 33.3 g/dl (32-36); MEAN PLATELET VOLUME 10.6 fL (7.4-10.4); MONO % 4.4 %; MONO ABS # 0.34 K/uL (0.11-0.59); NEUT % 71.4 %; NEUT ABS # 5.55 K/uL (1.4-6.5); PLATELET COUNT 360 K/uL (130-400); RED CELL DISTRIBUTION WIDTH CV 14.1 % (11.5-14.5); RED CELL DISTRIBUTION WIDTH SD 49.6 fL (36.4-46.3); WHITE BLOOD COUNT 7.78 K/uL (4.8-10.8)
[2017-12-27 17:38] LABS: ALBUMIN 3.7 gm/dl (3.4-5.0); CALCIUM 8.4 mg/dl (8.5-10.1); CREATININE 0.8 mg/dl (0.60-1.20); POTASSIUM 3.8 mmol/L (3.5-5.1); TOTAL PROTEIN 7.5 gm/dl (6.4-8.2)
[2017-12-27 18:15] VITALS: BP 142/88; PULSE 65; O2SAT 95
== END 2017-12-27 18:20 | disposition home or self-care (01) ==
LOC: C.EDB 15:58 → C.EDA 18:20
DX: G43.909 Migraine, unspecified, not intractable, without status migrainosus (principal); E03.9 Hypothyroidism, unspecified; Z87.440 Personal history of urinary (tract) infections; Z90.49 Acquired absence of other specified parts of digestive tract; Z90.710 Acquired absence of both cervix and uterus; Z82.49 Family history of ischemic heart disease and other diseases of the circulatory system; Z83.79 Family history of other diseases of the digestive system; F17.210 Nicotine dependence, cigarettes, uncomplicated; Z79.899 Other long term (current) drug therapy

== ENCOUNTER 2019-04-03 06:35 | Observation (INO) ==
[2019-04-03] MEDS ORDERED: ONDANSETRON INJ 2 MG/ML 2 ML VIAL IV STA (06:50)
[2019-04-03] MEDS ORDERED: SODIUM CHLORIDE 0.9% 1000ML 1,000 ML IV ONE (06:50)
[2019-04-03] MEDS ORDERED: HYDROmorphone INJ 0.5 MG/0.5 ML SYR IV STA ×2 (06:50→10:16)
--- NOTE | 2019-04-03 06:58 | Emergency Department Note ---
History of Present Illness General Chief complaint: Abdominal Pain Stated complaint: LOWER RT ABD PAIN Time Seen by Provider: 04/03/19 06:42 History of Present Illness Maximum Pain Intensity: 10 This 38-year-old female presents to the ER with chief complaint of right lower quadrant pain which started yesterday. She states when she lays down it radiates to her back. She denies any chest pain or shortness of breath. The patient denies any fevers. She does admit to nausea but denies any vomiting. The patient states that she has issues with constipation but has had 2 bowel movements over the last several days which is normal for her. The patient denies any urinary symptoms of frequency, urgency, dysuria or hematuria. The patient denies any vaginal discharge. The patient is status post cholecystectomy and partial hysterectomy. The patient admits to drinking some soda this morning but did not have anything to eat today. Home Medications Home Medications Medication Instructions Recorded Confirmed Type buprenorphine-naloxone 2.5 tab SUBLINGUAL DAILY 11/11/18 04/03/19 History acetaminophen [Tylenol Extra 1,000 mg PO DIRECTED PRN 02/01/19 04/03/19 History Strength] levothyroxine 150 mcg tablet 150 mcg PO DAILY #90 tab 02/02/19 04/03/19 Rx ibuprofen 800 mg tablet 800 mg PO TID PRN #90 tab 02/03/19 04/03/19 Rx phentermine 37.5 mg PO DAILY 04/03/19 04/03/19 History Allergies Allergy/AdvReac Type Severity Reaction Status Date / Time morphine Allergy Severe "CHEST Verified 04/03/19 07:26 GETS TIGHT AND CAN'T BREATH" Past Med/Surg History Medical History Hypothyroidism (Chronic 11/02/10) Migraine (Chronic 02/03/13) Ovarian cyst, right (Resolved) Surgical History History of cholecystectomy (Resolved 10/28/12) Family History Mother Stomach cancer Social History Preferred Language: Khmer marital status: Single marital status details: Live with children Current Living Situation: Family current occupational status: unemployed current occupation: [employer] Feels Safe at Home: Yes Smoking Status: Current every day smoker Tobacco Type: cigarettes ; packs per day: 1 ; Second Hand Exposure: Yes ; Hx Alcohol Use: Yes Alcohol type: hard liquor Alcohol Intake Frequency: Weekly Alcohol Intake Frequency Comment: 2-3/ week Hx Substance Use: No Dental Care, Regularly: No Physical Activity Frequency: Does not Exercise Physical Activity Frequency Comment: Walking at work Seatbelt Use: never Review of Systems A total of 10 systems reviewed and were otherwise negative Physical Exam Vital Signs Vital Signs - 24 hr 04/03/19 06:39 04/03/19 08:00 04/03/19 10:04 Temperature 36.9 C Temperature Source Oral Pulse Rate 99 H Pulse Rate [Right Finger] 92 H 85 Pulse Rhythm [Right Finger] Regular Respiratory Rate 20 20 16 Respiratory Effort / Characteristics Non-Labored Spontaneous Non-Labored Spontaneous Non-Labored Spontaneous Respiratory Depth Normal Normal Respiratory Pattern Regular Blood Pressure 144/100 H Blood Pressure [Right Arm] 133/68 142/93 H Blood Pressure Mean 114 Blood Pressure Mean [Right Arm] 89 109 Blood Pressure Position Sitting Pulse Oximetry 97 95 100 Oxygen Delivery Method Room Air Room Air Sepsis Recent Fever Within 48 Hours No Sepsis Action Taken by Nursing No Action Required GENERAL: 38-year-old female appears uncomfortable secondary to pain. MENTAL Status: Alert and oriented x3. MOUTH: Mucosa is moist NECK: Supple, no lymphadenopathy noted. No carotid bruits noted. LUNGS: Clear auscultation without wheezes rales or rhonchi. CARDIAC: Regular rate and rhythm without murmur. Pulses is full and equal throughout. BACK: No CVA tenderness noted. ABDOMEN: Positive bowel sounds all 4 quadrants. Soft, tenderness palpation in the right lower quadrant as well as left lower quadrant. Positive rebound tenderness in the right lower quadrant. Upper abdomen is nontender to palpation without organomegaly or masses. EXTREMITIES: No cyanosis or edema noted. Course Administered Medications Ioversol (Optiray 320 100ml) 94 ml IV ONCE PRN PRN Reason: Interaction Checking Stop: 04/07/19 09:10 Last Admin: 04/03/19 09:11 Dose: 94 ml Documented by: [id number] Discontinued Medications Hydromorphone HCl (Dilaudid) 0.5 mg IV NOW STA Stop: 04/03/19 06:51 Last Admin: 04/03/19 07:15 Dose: 0.5 mg Documented by: [id number] Sodium Chloride (Nss 1000ml) 1,000 mls @ 999 mls/hr IV .Q1H1M ONE Stop: 04/03/19 07:50 Last Infusion: 04/03/19 08:53 Dose: 0 mls/hr Documented by: [id number] Admin: 04/03/19 07:15 Dose: 999 mls/hr Documented by: [id number] Ondansetron HCl (Zofran) 4 mg IV NOW STA Stop: 04/03/19 06:51 Last Admin: 04/03/19 07:15 Dose: 4 mg Documented by: [id number] Potassium Chloride (Klor-Con M10) 10 meq PO NOW STA Stop: 04/03/19 08:00 Last Admin: 04/03/19 08:22 Dose: 10 meq Documented by: [id number] Medical Decision Making Differential Diagnosis Acute appendicitis, ovarian cyst, kidney stone, small bowel obstruction Medical Records Attestation: I reviewed the patient's medical records. Home Medications Current Medication List: was personally reviewed by me Laboratory Data Attestation: I reviewed the patient's lab results. Result diagrams: 04/03/19 07:20 04/03/19 07:20 Lab Results 04/03/19 04/03/19 04/03/19 Range/Units 07:20 07:20 07:20 WBC 5.37 (4.8-10.8) K/uL RBC 4.16 L (4.2-5.4) M/uL Hgb 13.3 (12.0-16.0) g/dL Hct 39.1 (37-47) % MCV 94.0 (80-100) fL MCH 32.0 (25-34) pg MCHC 34.0 (32-36) g/dL RDW Std Deviation 48.6 H (36.4-46.3) fL RDW Coeff of Trevor 14.2 (11.5-14.5) % Plt Count 250 (130-400) K/uL MPV 10.3 (7.4-10.4) fL Immature Gran % (Auto) 0.2 % Neut % (Auto) 68.7 % Lymph % (Auto) 21.6 % [place] % (Auto) 6.5 % Eos % (Auto) 2.8 % Baso % (Auto) 0.2 % Immature Gran # (Auto) 0.01 (0.00-0.02) K/uL Neut # (Auto) 3.69 (1.4-6.5) K/uL Lymph # (Auto) 1.16 L (1.2-3.4) K/uL [place] # (Auto) 0.35 (0.11-0.59) K/uL Eos # (Auto) 0.15 (0-0.5) K/uL Baso # (Auto) 0.01 (0-0.2) K/uL PT 10.2 (9.0-12.0) Seconds INR 1.0 (0.9-1.1) Sodium 142 (136-145) mmol/L Potassium 3.1 L (3.5-5.1) mmol/L Chloride 109 H (98-107) mmol/L Carbon Dioxide 26 (21-32) mmol/L Anion Gap 7.0 (3-11) BUN 5 L (7-18) mg/dl Creatinine 0.83 (0.6-1.2) mg/dl Est Cr Clr Drug Dosing 102.1 ml/min Est GFR ( Amer) 104.4 Est GFR (Non-Af Amer) 90.1 BUN/Creatinine Ratio 6.1 L (10-20) Glucose 122 H (70-99) mg/dl Calcium 8.7 (8.5-10.1) mg/dl Total Bilirubin 0.4 (0.2-1) mg/dl AST 17 (15-37) U/L ALT 18 (12-78) U/L Alkaline Phosphatase 68 (45-117) U/L Total Protein 6.6 (6.4-8.2) gm/dl Albumin 3.1 L (3.4-5.0) gm/dl Globulin 3.5 (2.5-4.0) gm/dl Albumin/Globulin Ratio 0.9 (0.9-2) Lipase 38 L (73-393) U/L Urine Color Urine Appearance (Clear) Urine pH (4.5-7.5) Ur Specific [place] (1.000-1.030) Urine Protein (Negative) Urine Glucose (UA) (Negative) Urine Ketones (Negative) Urine Blood (Negative) Urine Nitrite (Negative) Urine Bilirubin (Negative) Urine Urobilinogen (Negative) Ur Leukocyte Esterase (Negative) Urine WBC (Auto) (0-5) /hpf Urine RBC (Auto) (0-4) /hpf U Hyaline Cast (Auto) (0-5) /lpf U Epithel Cells (Auto) (0-5) /lpf Urine Bacteria (Auto) (Negative) 04/03/19 Range/Units 08:10 WBC (4.8-10.8) K/uL RBC (4.2-5.4) M/uL Hgb (12.0-16.0) g/dL Hct (37-47) % MCV (80-100) fL MCH (25-34) pg MCHC (32-36) g/dL RDW Std Deviation (36.4-46.3) fL RDW Coeff of Trevor (11.5-14.5) % Plt Count (130-400) K/uL MPV (7.4-10.4) fL Immature Gran % (Auto) % Neut % (Auto) % Lymph % (Auto) % [place] % (Auto) % Eos % (Auto) % Baso % (Auto) % Immature Gran # (Auto) (0.00-0.02) K/uL Neut # (Auto) (1.4-6.5) K/uL Lymph # (Auto) (1.2-3.4) K/uL [place] # (Auto) (0.11-0.59) K/uL Eos # (Auto) (0-0.5) K/uL Baso # (Auto) (0-0.2) K/uL PT (9.0-12.0) Seconds INR (0.9-1.1) Sodium (136-145) mmol/L Potassium (3.5-5.1) mmol/L Chloride (98-107) mmol/L Carbon Dioxide (21-32) mmol/L Anion Gap (3-11) BUN (7-18) mg/dl Creatinine (0.6-1.2) mg/dl Est Cr Clr Drug Dosing ml/min Est GFR ( Amer) Est GFR (Non-Af Amer) BUN/Creatinine Ratio (10-20) Glucose (70-99) mg/dl Calcium (8.5-10.1) mg/dl Total Bilirubin (0.2-1) mg/dl AST (15-37) U/L ALT (12-78) U/L Alkaline Phosphatase (45-117) U/L Total Protein (6.4-8.2) gm/dl Albumin (3.4-5.0) gm/dl Globulin (2.5-4.0) gm/dl Albumin/Globulin Ratio (0.9-2) Lipase (73-393) U/L Urine Color Yellow Urine Appearance Cloudy A (Clear) Urine pH 6.0 (4.5-7.5) Ur Specific [place] 1.008 (1.000-1.030) Urine Protein 1+ H (Negative) Urine Glucose (UA) Negative (Negative) Urine Ketones Negative (Negative) Urine Blood 1+ H (Negative) Urine Nitrite Positive A (Negative) Urine Bilirubin Negative (Negative) Urine Urobilinogen Negative (Negative) Ur Leukocyte Esterase 3+ H (Negative) Urine WBC (Auto) >30 H (0-5) /hpf Urine RBC (Auto) 0-4 (0-4) /hpf U Hyaline Cast (Auto) 5-10 H (0-5) /lpf U Epithel Cells (Auto) 5-10 H (0-5) /lpf Urine Bacteria (Auto) 2+ H (Negative) Imaging Data Attestation: I personally reviewed and interpreted this imaging study as follows: My Impression: Dilated appendix consistent with mild to moderate acute appendicitis Radiologist's Impression: CT abd pelvis oral and IV con CT DOSE: 712.38 mGy.cm HISTORY: Flank pain Right lower quadrant pain TECHNIQUE: Multiaxial CT images of the abdomen and pelvis were performed followi ng the use of intravenous and oral contrast. A dose lowering technique was utilized adhering to the principles of ALARA. COMPARISON STUDY: 07/14/2017 FINDINGS: The lung bases are clear. Small hepatic cyst superior right hepatic lobe. Liver spleen and pancreas are otherwise unremarkable. Kidneys negative for hydronephrosis. Bowel pattern is nonobstructive. The appendix is retrocecal in location. As maximum diameter 7 mm. There is a trace amount of surrounding fat stranding and/or infiltrative change. No evidence for collection or abscess. 6 small bilateral ovarian follicular cyst. Trace free fluid within the pelvic cul-de-sac. Bladder is midline. IMPRESSION: 1. Findings consistent with a low to mid grade acute appendicitis. 2. Minimal infiltrative change of the periappendiceal fat. 3. No evidence for abscess, collection,, or obstruction. The above report was generated using voice recognition software. It may contain grammatical, syntax or spelling errors. Electronically signed by: Charanjit Goodson M.D. 04/03/2019 9:29 AM Dictated: 04/03/19919 Transcribed: 04/03/19919 Blood Pressure Blood Pressure Findings: Elevated blood pressure Blood Pressure Disposition: elevated BP felt to be situational MDM Narrative The patient was evaluated. The patient states that she gets chest tightness with morphine but has had Dilaudid in the past without any difficulty. IV access was obtained. Patient was given 1 L normal saline wide open. She was given Dilaudid 0.5 mg IV and Zofran 4 mg IV push. CBC and differential, renal profile, LFTs and lipase levels were ordered. Urinalysis was ordered. CT of the abdomen pelvis with IV and oral contrast was ordered and interpreted by the radiologist and myself as above with evidence of acute appendicitis. Urinalysis revealed positive blood positive nitrates positive leukocytes and 2+ bacteria. Culture is pending. White count was normal at 5.37. Otherwise labs were unremarkable except for slightly low potassium at 3.1. She was given Kdur 10 mEq oral. The patient was informed of all findings. Dr. Menjivar was consulted for admission. Impression & Plan Acute appendicitis, UTI (urinary tract infection) Discharge Plan Visit Data Chief Complaint: Abdominal Pain Stated Complaint: LOWER RT ABD PAIN ED Provider: Gian Jarrell ED Midlevel Provider: Cynthia Goodson Discharge Problem: Acute appendicitis, UTI (urinary tract infection) Forms Stand Alone Forms: Call Back Authorization, [facility] [employer] Prescriptions Prescriptions: No Action levothyroxine 150 mcg tablet 150 mcg PO DAILY Qty: 90 RF: 1 ibuprofen 800 mg tablet 800 mg PO TID PRN (Reason: pain) Qty: 90 RF: 1 buprenorphine-naloxone 8-2 mg tablet, sublingual 2.5 tab sublingual DAILY RF: 0 phentermine 37.5 mg tablet 37.5 mg PO DAILY RF: 0 acetaminophen [Tylenol Extra Strength] 500 mg tablet 1,000 mg PO DIRECTED PRN (Reason: Fever Or Pain) RF: 0 Discharge Problem: Acute appendicitis Qualifiers: Acute appendicitis type: unspecified acute appendicitis type Qualified Code(s): K35.80 - Unspecified acute appendicitis UTI (urinary tract infection) Qualifiers: Urinary tract infection type: acute cystitis Hematuria presence: with hematuria Qualified Code(s): N30.01 - Acute cystitis with hematuria
[2019-04-03 07:27] LABS: Basophils # (auto) 0.01 K/uL (0-0.2); Basophils % (auto) 0.2 %; Eosinophils # (auto) 0.15 K/uL (0-0.5); Eosinophils % (auto) 2.8 %; Hematocrit (blood only) 39.1 % (37-47); Hemoglobin 13.3 g/dL (12.0-16.0); Immature Granulocytes # (auto) 0.01 K/uL (0.00-0.02); Immature Granulocytes % (auto) 0.2 %; Lymphocytes # (auto) 1.16 K/uL (1.2-3.4); Lymphocytes % (auto) 21.6 %; Mean Platelet Volume 10.3 fL (7.4-10.4); Monocytes # (auto) 0.35 K/uL (0.11-0.59); Monocytes % (auto) 6.5 %; Neutrophils # (auto) 3.69 K/uL (1.4-6.5); Neutrophils % (auto) 68.7 %; Platelet Count 250 K/uL (130-400); RDW Coefficient of Variation 14.2 % (11.5-14.5); RDW Standard Deviation 48.6 fL (36.4-46.3); Red Blood Count 4.16 M/uL (4.2-5.4); White Blood Count 5.37 K/uL (4.8-10.8)
[2019-04-03 07:39] LABS: Prothrombin Time 10.2 Seconds (9.0-12.0)
[2019-04-03 07:43] LABS: Albumin Level 3.1 gm/dl (3.4-5.0); BUN Creatinine Ratio 6.1 (10-20); Calcium 8.7 mg/dl (8.5-10.1); Creatinine Clr Calc Pharmacy 102.1 ml/min; Est GFR (African American) 104.4; Est GFR (Non-African American) 90.1; Potassium 3.1 mmol/L (3.5-5.1)
[2019-04-03 07:46] LABS: Albumin Globulin Ratio 0.9 (0.9-2); Bilirubin,Total 0.4 mg/dl (0.2-1); Globulin 3.5 gm/dl (2.5-4.0); Total Protein 6.6 gm/dl (6.4-8.2)
[2019-04-03] MEDS ORDERED: POTASSIUM CHLORIDE 10 MEQ TABCR PO STA (07:59)
[2019-04-03 08:23] LABS: Appearance Urine Cloudy (Clear); Bacteria Urine Automated 2+ (Negative); Bilirubin Urine Negative (Negative); Blood Urine 1+ (Negative); Color Urine Yellow; Glucose Urine UA Negative (Negative); Ketones Urine Negative (Negative); Leukocyte Esterase Urine 3+ (Negative); Nitrite Urine Positive (Negative); Protein Urine 1+ (Negative); RBC Urine Automated 0-4 /hpf (0-4); Specific Gravity Urine 1.008 (1.000-1.030); Urobilinogen Urine Negative (Negative); WBC Urine Automated >30 /hpf (0-5)
[2019-04-03] MEDS ORDERED: IOVERSOL 100ml IV PRN (09:11)
--- NOTE | 2019-04-03 09:30 | CT Scan Report ---
CT abd pelvis oral and IV con CT DOSE: 712.38 mGy.cm HISTORY: Flank pain Right lower quadrant pain TECHNIQUE: Multiaxial CT images of the abdomen and pelvis were performed following the use of intrave nous and oral contrast. A dose lowering technique was utilized adhering to the principles of ALARA. COMPARISON STUDY: 07/14/2017 FINDINGS: The lung bases are clear. Small hepatic cyst superior right hepatic lobe. Liver spleen and pancreas are otherwise unremarkable. Kidneys negative for hydronephrosis. Bowel pattern is nonobstructive. The appendix is retrocecal in location. As maximum diameter 7 mm. There is a trace amount of surround ing fat stranding and/or infiltrative change. No evidence for collection or abscess. 6 small bilateral ovarian follicular cyst. Trace free fluid within the pelvic cul-de-sac. Bladder is midline. IMPRESSION: 1. Findings consistent with a low to mid grade acute appendicitis. 2. Minimal infiltrative change of the periappendiceal fat. 3. No evidence for abscess, collection,, or obstruction. The above report was generated using voice recognition software. It may contain grammatical, syntax or spelling errors. Electronically signed by: Charanjit Goodson M.D. 04/03/2019 9:29 AM
--- NOTE | 2019-04-03 10:51 | History & Physical Report ---
Date of Service April 03, 2019 Assessment & Plan (1) Acute appendicitis: IVF IV abx to OR for lap appendectomy Acute appendicitis type: unspecified acute appendicitis type Qualified Code(s): K35.80 - Unspecified acute appendicitis Present on Admission?: Yes History of Present Illness Primary Care Provider: Ole Narayan III, CRNP This 38-year-old female who presents to the ED with right lower quadrant pain which started yesterday. She does admit to nausea but denies any vomiting. The patient denies any fevers. The patient states that she has issues with constipation but has had 2 bowel movements over the last several days which is normal for her. The patient denies any urinary symptoms of frequency, urgency, dysuria or hematuria. The patient denies any vaginal discharge. The patient is status post cholecystectomy and partial hysterectomy. The patient admits to drinking some soda this morning but did not have anything to eat today. Allergies Allergy/AdvReac Type Severity Reaction Status Date / Time morphine Allergy Severe "CHEST Verified 04/03/19 07:26 GETS TIGHT AND CAN'T BREATH" Home Medications Home Medications Medication Instructions Recorded Confirmed Type buprenorphine-naloxone 2.5 tab SUBLINGUAL DAILY 11/11/18 04/03/19 History acetaminophen [Tylenol Extra 1,000 mg PO DIRECTED PRN 02/01/19 04/03/19 History Strength] levothyroxine 150 mcg tablet 150 mcg PO DAILY #90 tab 02/02/19 04/03/19 Rx ibuprofen 800 mg tablet 800 mg PO TID PRN #90 tab 02/03/19 04/03/19 Rx phentermine 37.5 mg PO DAILY 04/03/19 04/03/19 History Past Med/Surg History Medical History Hypothyroidism (Chronic 11/02/10) Migraine (Chronic 02/03/13) Ovarian cyst, right (Resolved) Surgical History History of cholecystectomy (Resolved 10/28/12) Family History Mother Stomach cancer Social History Preferred Language: Ecuadorean marital status: Single marital status details: Live with children Current Living Situation: Family current occupational status: unemployed current occupation: [employer] Feels Safe at Home: Yes Smoking Status: Current every day smoker Tobacco Type: cigarettes ; packs per day: 1 ; Second Hand Exposure: Yes ; Hx Alcohol Use: Yes Alcohol type: hard liquor Alcohol Intake Frequency: Weekly Alcohol Intake Frequency Comment: 2-3/ week Hx Substance Use: No Dental Care, Regularly: No Physical Activity Frequency: Does not Exercise Physical Activity Frequency Comment: Walking at work Seatbelt Use: never Review of Systems no fever and no chills no cough and no dyspnea no chest pain and no dyspnea + abdominal pain and + nausea; no vomiting and no change in bowel habits no dysuria + back pain; no joint pain no localized weakness and no generalized weakness Physical Exam Constitutional: WD/WN, vitals as above Neck: trachea midline Respiratory: normal respiratory effort, lungs clear to auscultation Cardiovascular: RRR, no murmur, no edema Gastrointestinal (Abdomen): Inspection/Auscultation: normal bowel sounds and + abdominal surgical scar; abdomen not distended Percussion/Palpation: + abdomen tender, + guarding and abdomen soft; abdomen not rigid ASA Classification ASA ASA2E Results & Data Vital Signs (Past 12 Hours) Vital Signs Temp Pulse Pulse Resp BP BP Pulse Ox 04/03/19 10:04 85 16 142/93 H 100 04/03/19 08:00 92 H 20 133/68 95 04/03/19 06:39 36.9 C 99 H 20 144/100 H 97 Diagnostic Findings T abd pelvis oral and IV con CT DOSE: 712.38 mGy.cm HISTORY: Flank pain Right lower quadrant pain TECHNIQUE: Multiaxial CT images of the abdomen and pelvis were performed following the use of intravenous and oral contrast. A dose lowering technique was utilized adhering to the principles of ALARA. COMPARISON STUDY: 07/14/2017 FINDINGS: The lung bases are clear. Small hepatic cyst superior right hepatic lobe. Liver spleen and pancreas are otherwise unremarkable. Kidneys negative for hydronephrosis. Bowel pattern is nonobstructive. The appendix is retrocecal in location. As maximum diameter 7 mm. There is a trace amount of surrounding fat stranding and/or infiltrative change. No evidence for collection or abscess. 6 small bilateral ovarian follicular cyst. Trace free fluid within the pelvic cul-de-sac. Bladder is midline. IMPRESSION: 1. Findings consistent with a low to mid grade acute appendicitis. 2. Minimal infiltrative change of the periappendiceal fat. 3. No evidence for abscess, collection,, or obstruction. Code Status & VTE Plan Code Status Full Code VTE Prophylaxis Plan VTE Prophylaxis will be ordered: Yes
--- NOTE | 2019-04-03 11:25 | Anesthesiology Consultation ---
Date of Service April 03, 2019 Assessment & Plan (1) Encounter for pre-operative examination: (2) GERD (gastroesophageal reflux disease): History Surgery Operation Date: 04/03/19 12:30 Proposed Procedures p Laparoscopic Appendectomy - Andres Menjivar MD Height/Weight Height: 5 ft 5 in Weight: 88.8 kg Allergies Allergy/AdvReac Type Severity Reaction Status Date / Time morphine Allergy Severe "CHEST Verified 04/03/19 07:26 GETS TIGHT AND CAN'T BREATH" Latex, Natural Rubber Allergy Rash Verified 04/03/19 12:14 Medications Home Medications Medication Instructions Recorded Confirmed Last Taken buprenorphine-naloxone 2.5 tab SUBLINGUAL DAILY 11/11/18 04/03/19 04/02/19 1 tablet acetaminophen [Tylenol Extra 1,000 mg PO DIRECTED PRN 02/01/19 04/03/19 Unknown Strength] levothyroxine 150 mcg tablet 150 mcg PO DAILY #90 tab 02/02/19 04/03/19 04/02/19 ibuprofen 800 mg tablet 800 mg PO TID PRN #90 tab 02/03/19 04/03/19 Unknown phentermine 37.5 mg PO DAILY 04/03/19 04/03/19 04/02/19 Active Medications Generic Name Dose Route Start Last Admin Trade Name Freq PRN Reason Stop Dose Admin Ioversol 94 ml 04/03/19 09:11 04/03/19 09:11 Optiray 320 100ml IV 04/07/19 09:10 94 ml ONCE PRN Administration Interaction Checking NPO Date Last Intake of Fluids: 04/03/19 Time Last Intake of Fluids: 09:00 Last Intake of Fluids Comment: contrast ct Date Last Intake of Solids: 04/02/19 Time Last Intake of Solids: 18:00 Past Medical History Medical History (Updated 04/03/19 @ 12:13 by Marci Allen MD) Hypothyroidism (Chronic 11/02/10) Migraine (Chronic 02/03/13) Ovarian cyst, right (Resolved) Past Family History Family History Mother Stomach cancer Past Surgical History Surgical History History of cholecystectomy (Resolved 10/28/12) Social History Smoking Status: Current every day smoker tobacco type: cigarettes Smoking cigarettes per day: 20 Do You Dip or Chew Tobacco: No Hx Alcohol Use: Yes Alcohol type: hard liquor alcohol intake frequency: a few times a week Alcohol Intake Frequency Comment: 2 to 3 drinks a week Hx Substance Use: No substance use type: former substance user and painkillers Last Used Substance: Unknown Physical Exam Vital Signs Last Vital Signs Temp 36.9 C 04/03/19 06:39 Pulse 81 04/03/19 11:59 Resp 20 04/03/19 11:59 BP 130/84 04/03/19 11:59 Pulse Ox 95 04/03/19 11:59 Testing Laboratory Results 04/03/19 07:20 04/03/19 07:20 PT 10.2 Seconds (9.0-12.0) 04/03/19 07:20 INR 1.0 (0.9-1.1) 04/03/19 07:20 Urine Color Yellow 04/03/19 08:10 Urine Appearance Cloudy (Clear) A 04/03/19 08:10 Urine pH 6.0 (4.5-7.5) 04/03/19 08:10 Ur Specific [place] 1.008 (1.000-1.030) 04/03/19 08:10 Urine Protein 1+ (Negative) H 04/03/19 08:10 Urine Glucose (UA) Negative (Negative) 04/03/19 08:10 Urine Ketones Negative (Negative) 04/03/19 08:10 Urine Nitrite Positive (Negative) A 04/03/19 08:10 Ur Leukocyte Esterase 3+ (Negative) H 04/03/19 08:10 Urine WBC (Auto) >30 /hpf (0-5) H 04/03/19 08:10 Urine RBC (Auto) 0-4 /hpf (0-4) 04/03/19 08:10 U Hyaline Cast (Auto) 5-10 /lpf (0-5) H 04/03/19 08:10 U Epithel Cells (Auto) 5-10 /lpf (0-5) H 04/03/19 08:10 Urine Bacteria (Auto) 2+ (Negative) H 04/03/19 08:10
[2019-04-03] MEDS ORDERED: EPINEPHrine INJ 1 MG/ML AMP ONE (11:59)
[2019-04-03] MEDS ORDERED: BUPIVACAINE 0.5 % 5 MG/1 ML MPF 30ML VIAL ONE (11:59)
[2019-04-03] MEDS ORDERED: MIDAZOLAM HCL 1 MG/ML 2ML VIAL ONE (12:03)
[2019-04-03] MEDS ORDERED: fentaNYL citrate 100 MCG/2 ML VIAL ONE ×2 (12:03→13:02)
[2019-04-03] MEDS ORDERED: ACETAMINOPHEN 1000 MG/100 ML IV IV ONE (12:10)
[2019-04-03] MEDS ORDERED: SCOPOLAMINE 1.5 MG TDSY ONE ×2 (12:20→12:21)
[2019-04-03] MEDS ORDERED: PROPOFOL IV EMULSION 10 MG/ML 20 ML VIAL IV ONE (12:48)
[2019-04-03] MEDS ORDERED: LIDOCAINE HCL 2% 2 ML VIAL/AMP(20MG/ML) INFIL ONE (12:48)
[2019-04-03] MEDS ORDERED: ONDANSETRON INJ 2 MG/ML 2 ML VIAL ONE (12:49)
[2019-04-03] MEDS ORDERED: ROCURONIUM BROMIDE 10 MG/ML 5 ML VIAL ONE (12:49)
[2019-04-03] MEDS ORDERED: SUCCINYLCHOLINE CHLORIDE 20 MG/ML 10 ML VIAL ONE (12:49)
[2019-04-03] MEDS ORDERED: DEXAMETHASONE SOD INJ 4 MG/ML VIAL ONE (12:49)
[2019-04-03] MEDS ORDERED: ALBUTEROL HFA INHALER 8.5 GM ONE (12:57)
[2019-04-03] MEDS ORDERED: GLYCOPYRROLATE 0.2 MG/ML VIAL ONE (12:59)
[2019-04-03] MEDS ORDERED: NEOSTIGMINE METHYLSULFATE 5 MG/5 ML SYR ONE (12:59)
[2019-04-03] MEDS ORDERED: cefOXitin 2,000 MG in DEXTROSE 5% 50 ML IV STA (13:00)
--- NOTE | 2019-04-03 13:10 | Post Operative Brief Note ---
Immediate Post Op Note v1 Date of Surgery April 03, 2019 Pre & Post Diagnosis Operation Date: 04/03/19 12:30 Pre-Op Diagnosis: acute appendicitis Post-Op Diagnosis: acute appendicitis I identified the patient and participated in the time-out.: Yes Procedure Operation Date: 04/03/19 12:30 Actual Procedures p Laparoscopic Appendectomy(Not Applicable) - Andres Menjivar MD Surgeon Andres Menjivar MD Die Cleaner none Estimated Blood Loss 3 Findings Consistent with Post-Op Diagnosis
[2019-04-03] MEDS ORDERED: HYDROmorphone INJ 0.5 MG/0.5 ML SYR IV PRN (13:15)
[2019-04-03] MEDS ORDERED: HYDROmorphone INJ 1 MG/ML SYRINGE IV PRN ×2 (13:15)
[2019-04-03] MEDS ORDERED: KETOROLAC 30 MG/ML VIAL ONE (13:19)
[2019-04-03] MEDS ORDERED: ePHEDrine sulfate 50 MG/ML AMP IV PRN (13:23)
[2019-04-03] MEDS ORDERED: ONDANSETRON INJ 2 MG/ML 2 ML VIAL IV PRN ×2 (13:23→14:39)
[2019-04-03] MEDS ORDERED: ATROPINE SULFATE 0.1 MG/ML 10ML SYR IV PRN (13:23)
[2019-04-03] MEDS: fentaNYL citrate 100 MCG/2 ML VIAL IV PRN ×4 (13:33→13:48)
--- NOTE | 2019-04-03 13:40 | Operative Report ---
DATE OF OPERATION: 04/03/2019 PREOPERATIVE DIAGNOSIS: Acute appendicitis. POSTOPERATIVE DIAGNOSIS: Acute appendicitis. PROCEDURE PERFORMED: Laparoscopic appendectomy. SURGEON: Andres Menjivar MD. BOX SPRING UPHOLSTERER: None. ANESTHESIA: General endotracheal 0.5% Marcaine with epinephrine local. ESTIMATED BLOOD LOSS: 3 mL. DRAINS: None. COMPLICATIONS: None. SPECIMENS: Appendix sent for pathologic evaluation. INDICATION FOR PROCEDURE: This is a 38-year-old female seen in the ED with complaints of abdominal pain. She had a CT scan showing acute appendicitis. She had appropriate clinical findings. We talked to her in detail and recommended laparoscopic appendectomy. Went over the risks of an open procedure, abscess requiring a CT guided drainage or reoperation. We also discussed the risk of bleeding and wound complications. She understands this and wishes to proceed. DESCRIPTION OF PROCEDURE: The patient was taken to the OR and underwent excellent general endotracheal anesthesia. Abdomen was prepped and draped in normal sterile fashion. Transverse supraumbilical incision was made. Veress needle was inserted and good pneumoperitoneum was achieved to 15 mmHg pressure. A visualized 11 port was then placed. A 12 left lower quadrant, 5 suprapubic, and a 5 right upper quadrant were placed in normal fashion. She was placed in head down and rolled to the left. Her cecum was identified. This was grasped with atraumatic grasper. The tip of the appendix was also grasped and put on tension. Harmonic scalpel was used to take down the mesoappendix. A DAI stapler was used to transect the appendix. Appendix was brought out with an Endobag and sent for pathologic evaluation. The abdomen was irrigated out with 200 mL of saline, suctioned clear. Both ovaries are normal. Terminal ileum was normal, no other abnormalities were noted. She did have a small cyst on her right ovary. The ports were then removed. Pneumoperitoneum was decompressed. 0 Vicryl was used to close the fascial defect at the 12 and 11 ports. Interrupted Vicryl was used to close the skin. 0.5% Marcaine with epinephrine local was used to create a local field block. Steri-Strips and benzoin were used for this incision. Sterile dressings were applied. The patient tolerated the procedure well with no complications, sent to post-recovery for a period of observation and be discharged to room once she meets criteria. I attest to the content of the Intraoperative Record and any orders documented therein. Any exception s are noted below.
[2019-04-03] MEDS: HYDROmorphone INJ 1 MG/ML SYRINGE IV PRN ×3 (13:53→14:03)
--- NOTE | 2019-04-03 14:10 | Anesthesiology Progress Note ---
Date of Service April 03, 2019 Anesthesia Post Procedure Vital Signs Vital Signs: Temp Pulse Pulse Pulse Resp BP BP 04/03/19 14:00 66 16 131/83 04/03/19 13:50 75 14 157/94 H 04/03/19 13:40 69 22 146/89 H 04/03/19 13:30 82 23 143/89 H 04/03/19 13:23 36.2 C L 85 18 149/96 H 04/03/19 11:59 81 20 130/84 04/03/19 10:04 85 16 142/93 H 04/03/19 08:00 92 H 20 133/68 04/03/19 06:39 36.9 C 99 H 20 144/100 H Pulse Ox 04/03/19 14:00 100 04/03/19 13:50 99 04/03/19 13:40 100 04/03/19 13:30 100 04/03/19 13:23 100 04/03/19 11:59 95 04/03/19 10:04 100 04/03/19 08:00 95 04/03/19 06:39 97 Pain Intensity Right Abdomen: Pain Intensity: 4 Medial Abdomen: Pain Intensity: 5 Transfer of Care Handoff Completed per policy Notes Mental Status: alert / awake / arousable and participated in evaluation Patient Amnestic to Procedure: Yes Nausea / Vomiting: adequately controlled Pain: adequately controlled Airway Patency, RR, SpO2: stable & adequate BP & HR: stable & adequate Hydration State: stable & adequate Anesthetic Complications: no major complications apparent and Pt Satisfied with anesthetic care
[2019-04-03] MEDS ORDERED: PROMETHAZINE HCL 25 MG in SODIUM CHLORIDE 0.9% 50 ML IV PRN (14:39)
[2019-04-03] MEDS ORDERED: IBUPROFEN 600 MG TAB PO PRN (14:39)
[2019-04-03] MEDS ORDERED: OXYCODONE/ACETAMINOPHEN 5mg/325mg TAB PO PRN (14:39)
[2019-04-03] MEDS ORDERED: KETOROLAC 30 MG/ML VIAL IV PRN (14:39)
[2019-04-03] MEDS ORDERED: POLYETHYLENE (MIRALAX) 17 GM PACK PO PRN (14:39)
[2019-04-03] MEDS ORDERED: DOCUSATE SODIUM 100 MG CAP PO PRN (14:39)
[2019-04-03] MEDS ORDERED: ACETAMINOPHEN 500 MG TAB PO PRN (14:39)
[2019-04-03] MEDS: LACTATED RINGER'S 1,000 ML IV SCH ×2 (15:34→23:26)
[2019-04-03] MEDS ORDERED: cefOXitin 2,000 MG in DEXTROSE 5% 50 ML IV SCH (19:00)
[2019-04-03] MEDS: OXYCODONE/ACETAMINOPHEN 5mg/325mg TAB PO PRN ×2 (19:28→23:26)
[2019-04-03] MEDS: cefOXitin 2,000 MG in DEXTROSE 5% 50 ML IV SCH (19:29)
[2019-04-04] MEDS: cefOXitin 2,000 MG in DEXTROSE 5% 50 ML IV SCH ×2 (03:58→13:29)
[2019-04-04] MEDS: OXYCODONE/ACETAMINOPHEN 5mg/325mg TAB PO PRN ×2 (06:02→12:17)
[2019-04-04] MEDS ORDERED: PANTOprazole 40 MG TAB PO SCH (06:30)
[2019-04-04] MEDS ORDERED: LEVOTHYROXINE SODIUM 150 MCG TABLET PO SCH (06:30)
--- NOTE | 2019-04-04 07:57 | Anesthesiology Progress Note ---
Date of Service April 04, 2019 Anesthesia Post Procedure Vital Signs Vital Signs: Temp Pulse Pulse Resp BP Pulse Ox 04/04/19 07:42 36.8 C 62 14 122/68 98 04/04/19 03:58 36.8 C 71 16 117/61 96 04/03/19 23:05 36.9 C 75 16 107/63 99 04/03/19 17:31 36.7 C 72 16 114/77 95 04/03/19 16:30 36.8 C 65 17 133/79 97 04/03/19 15:30 36.4 C L 65 17 131/82 92 04/03/19 15:11 67 18 125/84 04/03/19 14:10 36.4 C L 57 L 16 136/83 100 04/03/19 14:00 66 16 131/83 100 04/03/19 13:50 75 14 157/94 H 99 04/03/19 13:40 69 22 146/89 H 100 04/03/19 13:30 82 23 143/89 H 100 04/03/19 13:23 36.2 C L 85 18 149/96 H 100 04/03/19 11:59 81 20 130/84 95 04/03/19 10:04 85 16 142/93 H 100 04/03/19 08:00 92 H 20 133/68 95 Pain Intensity Right Abdomen: Pain Intensity: 3 Medial Abdomen: Pain Intensity: 3 Notes Mental Status: alert / awake / arousable and participated in evaluation Patient Amnestic to Procedure: Yes Nausea / Vomiting: adequately controlled Pain: adequately controlled Airway Patency, RR, SpO2: stable & adequate BP & HR: stable & adequate Hydration State: stable & adequate Anesthetic Complications: no major complications apparent
[2019-04-04] MEDS: LACTATED RINGER'S 1,000 ML IV SCH (09:57)
[2019-04-04 12:18] VITALS: BP 130/80; PULSE 80; TEMP 98.4; O2SAT 95
--- NOTE | 2019-04-04 14:30 | Surgery Progress Note ---
Date of Service April 04, 2019 Assessment & Plan (1) Acute appendicitis: POD # 1 s/p laparoscopic appendectomy -vitals stable, afebrile - pain controlled - no n/v tolerating diet Plan: Discharge home discharge instructions reviewed continue home medications including suboxone and Ibuprofen f/u surgery office in [address] gray has seen and exmained pt, agrees with above Subjective feeling better, sore at incisions but controlled no n/v, tolerating reg diet Physical Exam Constitutional: WD/WN, vitals as above no acute distress Gastrointestinal (Abdomen): Inspection/Auscultation: abdomen normal to inspection; abdomen not distended Percussion/Palpation: + abdomen tender (at incision sites) and abdomen soft; no guarding and abdomen not rigid Skin: no rashes, warm and dry + incision (covered with steri strips) Psychiatric: A+Ox3, euthymic affect Results & Data Vital Signs (Past 12 Hours) Vital Signs Temp Pulse Pulse Resp BP Pulse Ox 04/04/19 12:17 36.9 C 80 16 130/80 95 04/04/19 07:42 36.8 C 62 14 122/68 98 04/04/19 03:58 36.8 C 71 16 117/61 96 (1) Acute appendicitis Acute appendicitis type: unspecified acute appendicitis type Qualified Code(s): K35.80 - Unspecified acute appendicitis
--- NOTE | 2019-04-04 14:33 | Discharge Summary ---
Date of Service April 04, 2019 Admission HPI Per Admitting Provider This 38-year-old female who presents to the ED with right lower quadrant pain which started yesterday. She does admit to nausea but denies any vomiting. The patient denies any fevers. The patient states that she has issues with constipation but has had 2 bowel movements over the last several days which is normal for her. The patient denies any urinary symptoms of frequency, urgency, dysuria or hematuria. The patient denies any vaginal discharge. The patient is status post cholecystectomy and partial hysterectomy. The patient admits to drinking some soda this morning but did not have anything to eat today. Principal Diagnosis Acute appendicitis Discharge Data Allergies Allergy/AdvReac Type Severity Reaction Status Date / Time morphine Allergy Severe "CHEST Verified 04/03/19 07:26 GETS TIGHT AND CAN'T BREATH" Latex, Natural Rubber Allergy Rash Verified 04/03/19 12:14 chlorhexidine AdvReac Rash Verified 04/03/19 12:17 Consultations 04/03/19 09:56 ED Decision to Admit Stat Procedures Performed Operation Date: 04/03/19 12:30 Actual Procedures p Laparoscopic Appendectomy(Not Applicable) - Andres Menjivar MD Ordered Studies 04/03/19 06:50 CT abd pelvis oral and IV con Stat Hospital Course (1) Acute appendicitis: Patient was taken to operating room for laparoscopic appendectomy possible open by Dr. Menjivar. Patient was found to have acute appendicitis without perforation or abscess. Patient tolerated procedure well without any complications. Was transferred to recovery room and then to medical/surgical floor in stable condition. Diet was advanced as tolerated, IV fluids are continued, IV cefoxitin was continued, activity as tolerated. ON POD #1 patient was evaluated. Vitals signs stable, afebrile, tolerating regular diet, ambulating, urinating without difficulty, and pain controlled with oral pain medication. Patient was discharged home on POD #1 in stable condition. Overall hospital course was uneventful. Total Time Total Time Spent Total Time Spent (In Minutes): 20 Total Time Includes: Examination of the Patient, Discharge Planning and Medication Reconciliation Discharge Plan Discharge Items Patient Disposition: Home - Self-Care Reason For Visit: APPENDICITIS Discharge Diagnosis: Acute appendicitis Activity: Per Instructions section Non-emergency contact: Surgeon Call non-emergency contact if: you have any medication questions, your pain is not controlled, your pain is worsening, your pain is concerning for you, you have a fever, your temperature is above 101, your wound has increased redness, your wound has increased drainage and your wound pain has increased Follow-up/Referrals: Ole Narayan III, CRNP [Primary Care Provider] - Diet: Regular Addtl Attending Provider Instructions: Post-Surgical ~ Discharge Instructions Activity Recommendations: - lifting limitation: (10 pounds for 2 weeks), - exercise/sex/sports limit: (nonstrenuous for 2 weeks), - driving or machine use limit: (none for 1 week), - Shower/bathe limit: (may shower) Diet: - Resume previous diet SPECIAL CARE INSTRUCTIONS: - May shower. Let water run over area and pat dry. - Leave steri strips on for one week. - Call the surgeon's office with any questions or concerns - - (ex. temperature higher than 101 degrees F, excessive bleeding or pain). MEDICATIONS: - Resume previous medications unless instructed otherwise by your surgeon. - Can take Ibuprofen as needed for pain - Ibuprofen 800 mg every 8 hours with food FOLLOW UP VISIT: - If not already scheduled, please call the office to schedule a two week follow-up appointment. Office number Pending Studies at Discharge: Yes (appendix pathology, will be reviewed at follow up visit) Stand-Alone Forms: Call Back Authorization, [facility], 1928–1983, Opioid Pain Management, Smoking Cessation Medications and DC Order Prescriptions: Continued levothyroxine 150 mcg tablet 150 mcg PO DAILY Qty: 90 RF: 1 ibuprofen 800 mg tablet 800 mg PO TID PRN (Reason: pain) Qty: 90 RF: 1 buprenorphine-naloxone 8-2 mg tablet, sublingual 2.5 tab sublingual DAILY RF: 0 phentermine 37.5 mg tablet 37.5 mg PO DAILY RF: 0 acetaminophen [Tylenol Extra Strength] 500 mg tablet 1,000 mg PO DIRECTED PRN (Reason: Fever Or Pain) RF: 0 Discharge Orders: Discharge Order (Routine); Ordered 04/04/19 Ordered By: Ginette Gallagher/Other Patient Handouts: Surgery Prevent DVT After, Quit Smoking Get Support Admission Data Admit Date/Time: 04/03/19 14:34 Attending Provider: Andres Menjivar Admit Provider: Andres Menjivar Primary Care Provider: Ole Narayan III Other Providers: Andres Menjivar
== END 2019-04-04 14:59 | disposition home or self-care (01) ==
LOC: ED 06:35 → ASU 12:00 → 3E 12:00